=== PATIENT | male | born 1985 | race Caucasian/White ===

== ENCOUNTER 2020-02-25 15:25 | Emergency (ER) | payer OTHER, BC, SELFPAY ==
--- NOTE | ~2020-02-25 | XR_ITS ---
EXAMINATION: XR finger 4th RT min 2V EXAM DATE: 02/25/2020 15:49 INDICATION: Initial encounter following injury, with pain of the right fourth finger. TECHNIQUE: Right fourth finger frontal, lateral and oblique projections obtained and reviewed. The re is no prior study for comparison. FINDINGS: There are no acute right fourth finger fractures or dislocations identified. There is no s ubcutaneous gas. There is soft tissue swelling over the proximal phalanx. There are no radiopaque f oreign bodies. IMPRESSION: 1. Right fourth finger exam without acute osseous findings. 2. Soft tissue swelling. Reviewed, dictated and finalized at location A.
[2020-02-25 15:31] VITALS: BP 132/97; PULSE 98; RESP 20; TEMP 36.6; O2SAT 98
--- NOTE | 2020-02-25 16:10 | PC.NURSE ---
ice pack to rt hand/fingers. finger no longer appears angled/deformed
--- NOTE | 2020-02-25 16:20 | ED.UPPEXIN ---
HPI - Extremity Injury (Upper) General Chief Complaint: Extremity Injury, Upper <BILL Damian Last Filed: 02/25/20 16:27> Stated Complaint: right ring finger trauma <BILL Damian Last Filed: 02/25/20 16:27> Time Seen by Provider: 02/25/20 15:41 <BILL Damian Last Filed: 02/25/20 16:27> Source: patient <BILL Damian Last Filed: 02/25/20 16:27> Mode of arrival: ambulatory <BILL Damian Last Filed: 02/25/20 16:27> Limitations: no limitations <BILL Damian Last Filed: 02/25/20 16:27> History of Present Illness HPI narrative: This is a 34-year-old male that presents the emergency department for right fourth finger injury. Reports he was at work and tripped and fell and landed on his right hand. Reports an injury to the right 4th finger. Reports obvious deformity to the area. Reports while sitting in the room the finger reduced when he moved it. Denies numbness. <BILL Damian Last Filed: 02/25/20 16:27> Related Data Home Medications: Home Medications Medication Instructions Recorded Confirmed albuterol sulfate 1 inh INHALATION QID PRN 02/25/20 <BILL Damian Last Filed: 02/25/20 16:27> Allergies/Adverse Reactions: Allergies Allergy/AdvReac Type Severity Reaction Status Date / Time No Known Allergies Allergy Verified 02/25/20 15:37 <BILL Damian Last Filed: 02/25/20 16:27> Review of Systems Review of Systems: Narrative: CONSTITUTIONAL: Denies fever MUSCULOSKELETAL: Reports joint pain, and myalgia. NEUROLOGIC: Denies numbness <BILL Damian Last Filed: 02/25/20 16:27> All systems reviewed & are unremarkable except as noted in HPI and below <BILL Damian Last Filed: 05/12/20 16:27> PMFSH Past Medical History Medical History: Medical History (Updated 02/25/20 @ 16:27 by Michelle Walker PA-C) No active medical problems <Michelle Walker PA-C - Last Filed: 02/25/20 16:27> Family History Family History: Family History (Updated 05/13/16 @ 23:19 by DOCTOR UNKNOWN) Father Family history of diabetes mellitus in first degree relative <Michelle Walker PA-C - Last Filed: 02/25/20 16:27> Social History Social History: Social History Alcohol intake: current Gender identity (if verbalized by the patient): Male <Michelle Walker PA-C - Last Filed: 02/25/20 16:27> Exam Narrative: Exam Narrative: GENERAL: Well-appearing, well-nourished, and in no acute distress. HEAD: Normocephalic, atraumatic. EYES: EOMI. EXTREMITIES: Normal range of motion. No edema or obvious deformity. SKIN: Warm, dry, no rash. NEURO: No focal deficits. Alert and oriented x3. PSYCH: Normal mood and affect <Michelle Walker PA-C - Last Filed: 02/25/20 16:27> Course Vital Signs Vital signs: Vital Signs Temperature 97.8 F 02/25/20 15:31 Pulse Rate 98 02/25/20 15:31 Respiratory Rate 02/25/20 15:31 Blood Pressure 132/97 H 02/25/20 15:31 Pulse Oximetry 98 02/25/20 15:31 Temperature 97.8 F 02/25/20 15:31 Pulse Rate 98 02/25/20 15:31 Respiratory Rate 02/25/20 15:31 Blood Pressure 132/97 H 02/25/20 15:31 Pulse Oximetry 98 02/25/20 15:31 <Michelle Walker PA-C - Last Filed: 02/25/20 16:27> Vital Signs Temperature 97.8 F 02/25/20 15:31 Pulse Rate 98 02/25/20 15:31 Respiratory Rate 20 02/25/20 15:31 Blood Pressure 132/97 H 02/25/20 15:31 Pulse Oximetry 98 02/25/20 15:31 Temperature 97.8 F 02/25/20 15:31 Pulse Rate 98 02/25/20 15:31 Respiratory Rate 20 02/25/20 15:31 Blood Pressure 132/97 H 02/25/20 15:31 Pulse Oximetry 98 02/25/20 15:31 <Gaby Keyes MD - Last Filed: 02/25/20 20:00> MDM - Extremity Injury (Upper) MDM Narrative Medical decision making narrative: Patient presents to the emergency department for right fourth finger injur
[2020-02-25] MEDS: ACETAMINOPHEN 500 MG TABLET 1000 MG PO (16:31)
== END 2020-02-25 16:51 | disposition home or self-care (01) ==
PROVIDERS: Emergency Provider Emergency Medicine; PCP Family Medicine
DX: S63.284A Dislocation of proximal interphalangeal joint of right ring finger, initial encounter (principal); W01.0XXA Fall on same level from slipping, tripping and stumbling without subsequent striking against object, initial encounter
CPT/HCPCS: 29130; 73140; 99284; A9270

== ENCOUNTER 2020-10-15 19:38 | Emergency (ER) | payer OTHER, BC, SELFPAY ==
[2020-10-15 19:40] VITALS: BP 146/92; PULSE 92; RESP 16; TEMP 36.6; O2SAT 100
--- NOTE | 2020-10-15 20:14 | ED.DENTAL ---
HPI - Dental/Oral General Chief complaint: Dental/Oral Stated complaint: dental pain Time Seen by Provider: 10/15/20 19:44 Source: patient Mode of arrival: ambulatory Limitations: no limitations History of Present Illness HPI Narrative: Patient a 35-year-old male who presents with ulcers in the mouth that have been present since Monday has also had some intermittent fevers was seen and started on Augmentin for this patient denies any fever chills nausea vomiting today but notes that he has had intermittent fevers patient notes moderate aching pain involving the ulcers making it difficult to eat denies other URI symptoms. This week had a negative strep, Covid, and flu test. Related Data Allergies Allergy/AdvReac Type Severity Reaction Status Date / Time No Known Allergies Allergy Verified 10/14/20 12:33 Review of Systems Review of Systems: All systems reviewed & are unremarkable except as noted in HPI and below PMFSH Past Medical History Medical History Apnea BMI 31.0-31.9,adult BMI 32.0-32.9,adult Fatigue Fatigue No active medical problems Screening, lipid Family History Family History Father Family history of diabetes mellitus in first degree relative Acute myocardial infarction Diabetes mellitus Obesity Mother Emphysema of lung Social History Social History Smoking status: Never smoker Alcohol intake: current Gender identity (if verbalized by the patient): Male Exam Narrative: Exam Narrative: GENERAL: Well-appearing, well-nourished, and in no acute distress. HEAD: Normocephalic, atraumatic. EYES: PERRLA and EOMI. ENT: Nares clear, no rhinorrhea or epistaxis. Mucous membranes moist. Patient with aphthous ulcers in the oropharynx floor of the mouth is soft no space-occupying lesions noted uvula midline no trismus or drooling NECK: Supple. No adenopathy or masses. SKIN: Warm, dry, no rash. NEURO: No focal deficits. Alert and oriented x3. PSYCH: Normal mood and affect. Course Course Emergency Course: Patient in the room no distress will be referred to ENT for further evaluation of his mouth sores patient agreeing to this plan will be discharged at this time for outpatient follow-up Vital Signs Vital signs: Vital Signs Temperature 97.9 F 10/15/20 19:40 Pulse Rate 92 10/15/20 19:40 Respiratory Rate 16 10/15/20 19:40 Blood Pressure 146/92 H 10/15/20 19:40 Pulse Oximetry 100 10/15/20 19:40 Temperature 97.9 F 10/15/20 19:40 Pulse Rate 92 10/15/20 19:40 Respiratory Rate 16 10/15/20 19:40 Blood Pressure 146/92 H 10/15/20 19:40 Pulse Oximetry 100 10/15/20 19:40 MDM - Dental/Oral MDM Narrative Medical decision making narrative: Patient with likely viral syndrome will be referred to ENT for further evaluation. Patient afebrile nontoxic-appearing no distress felt appropriate for outpatient reevaluation. Differential Diagnosis Differential diagnosis: Likely gingival abscess, dental caries, toothache, dental abscess and aphthous ulcer Discharge Plan Discharge Clinical Impression: Aphthous ulcer of mouth Patient Disposition: Home, Self-Care Condition: Stable Instructions: Antibiotic Form, Canker Sores (ED) Additional Instructions: Follow-up with ENT and primary care in the next 3 to 5 days. Go to ER for shortness of breath, difficulty breathing, chest pain, fever/chills, weakness, nauseau/vomitting, etc. or any other concerns. Stay well-hydrated Take any prescribed medications as directed. Follow patient education sheets If you do not have a drug allergy to tylenol or motrin and can tolerate it then take tylenol or motrin as needed for discomfort/pain. Prescriptions: New Lidocaine Viscous 2 % solution 15 ml mucous membrane Q4-8H PRN (Reason: pain) Qty: 100 RF: 0 chlorhexidine
[2020-10-15] MEDS: DEXAMETHASONE SOD PHOS INJ 4 MG/ML VIAL 10 MG IM (20:16)
[2020-10-15 20:27] VITALS: BP 134/92; PULSE 82; RESP 16; TEMP 36.4; O2SAT 99
== END 2020-10-15 20:28 | disposition home or self-care (01) ==
PROVIDERS: Emergency Provider Emergency Medicine; PCP Family Medicine
DX: K12.0 Recurrent oral aphthae (principal); R06.81 Apnea, not elsewhere classified
CPT/HCPCS: 96372; 99283; J1100

== ENCOUNTER → 2020-10-30 15:45 | Outpatient (CLI) | payer OTHER, BC, SELFPAY ==
--- NOTE | ~2020-10-30 | XR_ITS ---
EXAMINATION: XR chest 2V DATE: 10/30/2020 16:02 INDICATION: Cough. TECHNIQUE: Frontal and lateral views of the chest were obtained. COMPARISON: Chest 2 views 11/04/2015 FINDINGS: The chest demonstrates clear lungs without pneumonia, pleural effusion, or pneumothorax. Th e heart size is normal. There is mild chronic anterior wedging of T12 vertebral body. IMPRESSION: 1. No acute cardiopulmonary disease. Reviewed, dictated and finalized at location A. CAL CLERICAL ASSISTANT
== END ==
PROVIDERS: PCP Family Medicine; Visit Provider Nurse Practitioner Family
DX: R05 Cough (principal)
CPT/HCPCS: 71046

== ENCOUNTER 2021-06-23 20:42 | Emergency (ER) | payer OTHER, SELFPAY ==
[2021-06-23 20:47] VITALS: BP 113/85; PULSE 100; RESP 18; TEMP 36.5; O2SAT 98
--- NOTE | 2021-06-23 21:56 | PC.NURSE ---
pt to intake desk and informed the nurse that he was going home and was going to take some benadryl . leadership intern verbalized that we are here 24/ if he would like to come back, and that we are very sorry for his wait.
== END 2021-06-23 22:11 | disposition left against medical advice (07) ==
LOC: ANHED 22:02
PROVIDERS: PCP Family Medicine
DX: T63.461A Toxic effect of venom of wasps, accidental (unintentional), initial encounter (principal)
CPT/HCPCS: 99199

== ENCOUNTER 2021-07-04 07:25 | Outpatient (CLI) | payer OTHER, BC, SELFPAY ==
--- NOTE | ~2021-07-04 | MR_ITS ---
EXAMINATION: MR brain/brain stem wo con DATE: 07/04/2021 08:15 INDICATION: Headache. TECHNIQUE: Magnetic resonance imaging (MRI) of the brain and brainstem was performed without intraven ous contrast. Sequences included sagittal and axial T1-weighted FSE, axial diffusion-weighted FS EPI, axial T2*-weighted GRE, axial T2-weighted FLAIR Propeller, and axial T2-weighted Propeller. Apparent diffusion coefficient (ADC) maps were created. COMPARISON: Head CT 11/04/2015 FINDINGS: There is no intracranial hemorrhage, acute infarction, or abnormal intracranial mass lesion . There is chronic encephalomalacia in lateral aspect of right temporal lobe. The ventricles are norm al in size. There is mucosal thickening in the sphenoid sinuses. The orbits are normal. There is a tr jackie left mastoid effusion. IMPRESSION: 1. Chronic encephalomalacia in lateral aspect of right temporal lobe, stable from 11/04/2015. Reviewed, dictated and finalized at location A. IMPRESSION: 1. Chronic encephalomalacia in lateral aspect of right temporal lobe, stable fr om 11/04/2015.
== END 2021-07-04 07:26 | disposition home or self-care (01) ==
PROVIDERS: PCP Family Medicine; Visit Provider Nurse Practitioner Family
DX: R51.9 Headache, unspecified (principal); Z87.81 Personal history of (healed) traumatic fracture; G93.89 Other specified disorders of brain
CPT/HCPCS: 70551

== ENCOUNTER 2021-07-10 15:06 | Emergency (ER) | payer OTHER, BC, SELFPAY ==
[2021-07-10 15:12] VITALS: BP 122/94; PULSE 92; RESP 16; TEMP 36.9; O2SAT 100
--- NOTE | 2021-07-10 15:12 | ED.URI ---
HPI - URI/Sore Throat General Chief Complaint: Upper Respiratory Infection Stated Complaint: cough/fever Time Seen by Provider: 07/10/21 15:21 Source: patient and RN notes reviewed Mode of arrival: ambulatory Limitations: no limitations History of Present Illness HPI Narrative: 36-year-old male presents with concern for cough, fever. He reports symptoms started Monday. He denies rhinorrhea, nasal congestion, sore throat, headache, vomiting, diarrhea. He denies body aches, chills, sweats. He reports he has been taking [id number] cold medicine with little relief. Reports he has not been vaccinated for Covid, does not have any known sick contacts, however reports there is been coworkers out of work due to illness. He denies shortness of breath. MD elicited complaint: cough Related Data Allergies Allergy/AdvReac Type Severity Reaction Status Date / Time No Known Allergies Allergy Verified 07/10/21 15:11 Review of Systems Review of Systems: CONSTITUTIONAL: Denies malaise, chills, sweats. Reports fever. EYES: Denies visual changes, redness, or discharge. ENT: Denies rhinorrhea, congestion, sinus pain, otalgia and sore throat. CARDIOVASCULAR: Denies chest pain, palpitations, or edema. RESPIRATORY: Reports cough. Denies dyspnea. GASTROINTESTINAL: Denies abdominal pain, nausea, vomiting, diarrhea SKIN: Denies rash or itching. MUSCULOSKELETAL: Denies myalgia. NEUROLOGIC: Denies headache. All systems reviewed & are unremarkable except as noted in HPI and below PMFSH Past Medical History Medical History Apnea BMI 31.0-31.9,adult BMI 32.0-32.9,adult BMI 33.0-33.9,adult Fatigue Fatigue No active medical problems Screening, lipid Family History Family History Father Family history of diabetes mellitus in first degree relative Acute myocardial infarction Diabetes mellitus Obesity Mother Emphysema of lung Sibling No problems noted. 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 There is no relevant family history pertinent to the presenting complaint Exam Narrative: GENERAL: Well-appearing, well-nourished, and in no acute distress. HEAD: Normocephalic EYES: PERRLA, conjunctivae clear ENT: Nares clear. Mucous membranes moist. TM pearly terry with sharp light reflex bilaterally; no tragal tenderness. Oropharynx not erythematous without lesions. Tonsils not enlarged and without exudate, no drooling, no hoarseness, no trismus, uvula midline. NECK: Supple. No lymphadenopathy CHEST: Clear to auscultation, breath sounds equal. No wheezing, rhonchi, rales, or stridor. No respiratory distress, speaks in full sentences. HEART: Regular rate and rhythm. No murmur heard. SKIN: Warm, dry, no rash. NEURO: Alert and oriented x3. PSYCH: Normal mood and affect Course Course Emergency Course: Patient is aware of diagnosis, understands and agrees to treatment plan. Anticipatory guidance given. Patient agrees to follow-up as directed and is aware of reasons to seek care at the emergency department. Portions of this record may have been created with voice recognition software Vital Signs Vital signs: Reviewed. MDM - URI/Sore Throat MDM Narrative Medical decision making narrative: Differential diagnosis considered: Valles virus, strep pharyngitis, allergic rhinitis, upper respiratory tract infection, sinusitis, rhinosinusitis, nasopharyngitis. viral pharyngitis, otitis media, otitis externa, pneumonia, bronch
== END 2021-07-10 15:35 | disposition home or self-care (01) ==
PROVIDERS: Emergency Provider Nurse Practitioner; PCP Family Medicine
DX: U07.1 COVID-19 (principal)
CPT/HCPCS: 87426; 99213; C9803; G0463

== ENCOUNTER 2021-11-12 15:49 | Emergency (ER) | payer OTHER, BC, SELFPAY ==
--- NOTE | ~2021-11-12 | XR_ITS ---
XR finger 4th LT min 2V DATE: 11/12/2021 16:29 INDICATION: Possible metallic foreign body TECHNIQUE: 3 views COMPARISON: None FINDINGS: There is a punctate radiopaque density overlying the superficial subcutaneous tissues anter ior to the distal interphalangeal joint. There is some radiopaque material beneath the distal aspect of the fourth digit fingernail. No fracture or dislocation, periosteal reaction or bone destruction. IMPRESSION: Pinpoint radiopaque foreign body overlying superficial anterior subcutaneous tissues at D IP joint level Reviewed, dictated and finalized at location A. ANNEALER IMPRESSION: Pinpoint radiopaque foreign body overlying superficial anterior sub cutaneous tissues at DIP joint level
[2021-11-12 15:58] VITALS: BP 144/78; PULSE 95; RESP 16; TEMP 36.9; O2SAT 99
--- NOTE | 2021-11-12 16:08 | ED.WOUNDLAC ---
HPI - Wound/Laceration General Chief Complaint: Wound/Laceration Stated Complaint: Infection in finger Time Seen by Provider: 11/12/21 16:09 Source: patient Mode of arrival: ambulatory Limitations: no limitations History of Present Illness HPI narrative: Karl Greenfield is a 36 yo male with a PMH of asthma, [facility] what appears to be an infection in his fourth left palmar side of his finger after getting a splinter on Monday with a red hot iron. pain with palpation on movement rated 9 for 10 Related Data Home Medications Medication Instructions Recorded Confirmed No Home Medications 11/12/21 11/12/21 Allergies Allergy/AdvReac Type Severity Reaction Status Date / Time No Known Allergies Allergy Verified 07/10/21 15:11 Review of Systems Review of Systems: CONSTITUTIONAL: Denies fever, chills, sweats. EYES: Denies visual changes, redness, discharge. ENT: Denies rhinorrhea, congestion, sore throat, otalgia. CARDIOVASCULAR: Denies chest pain, palpitations, edema. RESPIRATORY: Denies dyspnea, wheezing, cough GASTROINTESTINAL: Denies abdominal pain, nausea, vomiting, diarrhea. GENITOURINARY: Denies dysuria, hematuria, abnormal discharge SKIN: Denies rash or itching. NEUROLOGIC: Denies numbness, or focal weakness. PSYCHIATRIC: Denies anxiety or depression. Left fourth finger pain after metal splinter on Monday PMFSH Past Medical History Medical History Apnea Asthma BMI 31.0-31.9,adult BMI 32.0-32.9,adult BMI 33.0-33.9,adult Fatigue Fatigue No active medical problems Screening, lipid Family History Family History Father Family history of diabetes mellitus in first degree relative Acute myocardial infarction Diabetes mellitus Obesity Mother Emphysema of lung Sibling No problems noted. Social History Social History Smoking status: Never smoker Second hand tobacco smoke exposure: No Alcohol intake: current Substance use: never Substance use type: does not use Additional occupation/education comments: welder [employer] Gender identity (if verbalized by the patient): Male Comments At time of signature, I agree with nursing past medical, surgical, social and family history. There is no relevant family history pertinent to the presenting complaint. Patient's blood pressure elevated at this visit, follow-up with PCP Exam Narrative: GENERAL: This is a well-nourished, well-developed patient, in mild distress. HEAD: normocephalic, atraumatic. EYES: Sclera clear/white. Vision is grossly intact. EARS: External ears normal, . Hearing grossly intact. NOSE: External nose normal without nasal discharge, nares without redness, no rhinorrhea. THROAT: Mucous membranes moist, posterior pharynx NECK: Neck supple, CARDIOVASCULAR: Regular rate and rhythm without murmurs, gallops, or rubs. RESPIRATORY: Clear to auscultation. Breath sounds equal bilaterally. No wheezes, rales, or rhonchi. GASTROINTESTINAL: Abdomen soft, non-tender, SKIN: warm, intact with mild tenderness on the palmar side of the fourth distal digit of the finger, with some swelling, to move, no drainage. NEURO: awake, alert, and oriented to person, place and time. There were no obvious focal neurologic abnormalities. Steady gait EXTREMITIES: Normal range of motion. BACK: Nontender without deformity Course Course Emergency Course: Patient got metal splinter in finger on Monday and used a steak splinter out tool, since then finger has become more sore and swollen Xray of left hand-small cell sliver of metal in x-ray near distal joint patient to soak hand and started on antibiotic Start on Keflex-keep finger clean, cover while at work Level of Care: Express Care Visit Vital Signs Vital signs: Vital Signs Temperature 98.5 F 11/12/21 15:58 Pul
--- NOTE | 2021-11-12 16:47 | PC.NURSE ---
50/50 peroxide/ns soak in progress per geropsychologist order.
== END 2021-11-12 17:30 | disposition home or self-care (01) ==
PROVIDERS: Emergency Provider Nurse Practitioner; PCP Family Medicine
DX: S61.245A Puncture wound with foreign body of left ring finger without damage to nail, initial encounter (principal); W26.8XXA Contact with other sharp object(s), not elsewhere classified, initial encounter; J45.909 Unspecified asthma, uncomplicated
CPT/HCPCS: 73140; 99213; G0463

== ENCOUNTER 2022-02-24 11:33 | Outpatient (CLI) | payer OTHER, BC, SELFPAY ==
--- NOTE | ~2022-02-24 | US_ITS ---
EXAMINATION: US scrotum doppler DATE: 02/24/2022 12:16 INDICATION: Testicular pain TECHNIQUE: Testicular sonogram utilizing grayscale and Doppler COMPARISON: None. FINDINGS: The right testis measures 3.7 x 2.1 x 2.6 cm. The left testis measures 4.1 x 2.3 x 2.6 cm. There is normal vascular flow to both testes. The right epididymis is normal with normal vascular stephanie w. The left epididymis is normal with normal vascular flow. There is no varicocele or hydrocele. IMPRESSION: 1. No sonographic correlate for the patient's symptoms. Reviewed, dictated and finalized at location A.
== END 2022-02-24 11:34 | disposition home or self-care (01) ==
PROVIDERS: PCP Family Medicine; Visit Provider Nurse Practitioner Family
DX: N50.89 Other specified disorders of the male genital organs (principal)
CPT/HCPCS: 76870; 93976

== ENCOUNTER 2022-10-26 16:54 | Outpatient (CLI) | payer OTHER, BC, SELFPAY ==
--- NOTE | ~2022-10-26 | XR_ITS ---
EXAMINATION: XR_CERV2-3V_CR DATE: 10/26/2022 17:09 INDICATION: Neck pain. TECHNIQUE: 4 views of cervical spine including standing views were obtained. COMPARISON: Cervical spine radiographs 02/12/2018 FINDINGS: There is 10 degrees levoscoliosis of cervicothoracic spine. Vertebral body heights and inte rvertebral disc heights are normal. The facet joints are unremarkable. No central canal stenosis or p revertebral soft tissue swelling. IMPRESSION: 1. Cervicothoracic levoscoliosis. Reviewed, dictated and finalized at location A. INE HEEL SPRAYER
== END 2022-10-26 16:55 ==
LOC: MICIMG 16:56
PROVIDERS: PCP Family Medicine; Visit Provider Nurse Practitioner Family
DX: M54.2 Cervicalgia (principal)
CPT/HCPCS: 72040

== ENCOUNTER 2023-01-29 17:36 | Emergency (ER) | payer OTHER, BC, SELFPAY ==
--- NOTE | 2023-01-29 17:44 | ED.URI ---
HPI - URI/Sore Throat General Chief Complaint: Upper Respiratory Infection Stated Complaint: cough,lt ear clogged,congestion Time Seen by Provider: 01/29/23 17:44 Source: patient Mode of arrival: ambulatory Limitations: no limitations History of Present Illness HPI Narrative: 37-year-old male presents with complaint of cough, nasal congestion, sinus pressure off and on for the last 2 months. States he has tried multiple [id number] medications from his medicine cabinet and not helping. Mentioned a few such as Coricidin, Mucinex, ?cannot remember the other ones ?. Denies chest pain and shortness of breath. Does report a history of asthma. Patient works outside. Symptoms getting progressively worse. Reports blowing green drainage from his nose. Afebrile. All systems reviewed and negative except as noted above. Related Data Allergies Allergy/AdvReac Type Severity Reaction Status Date / Time No Known Allergies Allergy Verified 01/29/23 17:43 Review of Systems Review of Systems: CONSTITUTIONAL: Denies fever, chills, or sweats. EYES: Denies visual changes, redness, or discharge. ENT: Reports rhinorrhea, congestion, sinus pressure, postnasal drainage, left ear pain.. Denies sore throat CARDIOVASCULAR: Denies chest pain, palpitations, or edema. RESPIRATORY: Reports cough. Denies dyspnea. GASTROINTESTINAL: Denies abdominal pain, nausea, vomiting, or diarrhea. GENITOURINARY: Denies dysuria or hematuria. SKIN: Denies rash or itching. MUSCULOSKELETAL: Denies back pain, joint pain, or myalgia. NEUROLOGIC: Denies headache, numbness, or weakness. PSYCHIATRIC: Denies anxiety or depression. All other systems reviewed are negative, except as documented in HPI. [facility] Past Medical History Medical History Apnea Asthma BMI 31.0-31.9,adult BMI 32.0-32.9,adult BMI 33.0-33.9,adult Fatigue Fatigue No active medical problems Screening, lipid Family History Family History Father Family history of diabetes mellitus in first degree relative Acute myocardial infarction Diabetes mellitus Obesity Mother Emphysema of lung Sibling No problems noted. Social History Social History Smoking status: Never smoker Second hand tobacco smoke exposure: No Alcohol intake: current Substance use: never Substance use type: does not use Living arrangements: with family Occupation/Education: occupation Additional occupation/education comments: welder fitter gas Gender identity (if verbalized by the patient): Male Comments At time of signature, agree with nursing past medical, surgical, social and family history. There is no relevant family history pertinent to the presenting complaint. Exam Narrative: GENERAL: This is a well-nourished, well-developed patient, in no apparent distress. HEAD: normocephalic, atraumatic. EYES: PERRL. Sclera clear/white. Vision is grossly intact. EARS: External ears normal, auditory canals clear and without drainage, purulent fluid to L ear without erythema. R TM clear fluid. no perforation bilaterally. NOSE: External nose normal with purulent nasal drainage, erythema and swelling to bilateral nares. bilatearl maxillary sinus tenderness. THROAT: Mucous membranes moist, erythema with post nasal drainage. NECK: Neck supple, non-tender without lymphadenopathy, masses or thyromegaly. CARDIOVASCULAR: Regular rate and rhythm without murmurs, gallops, or rubs. RESPIRATORY: Clear to auscultation. Breath sounds equal bilaterally. No wheezes, rales, or rhonchi. SKIN: warm, Dry, intact with no suspicious lesions or rash, good texture and turgor. NEURO: awake, alert, and oriented to person, place and time. Course Course Level of Care: Express Care Visit Vital Signs Vital signs: Vital Signs Temperature 36.6 C 01/29/23 17:46
[2023-01-29 17:46] VITALS: BP 127/82; PULSE 103; RESP 16; TEMP 36.6; O2SAT 100
== END 2023-01-29 18:00 | disposition home or self-care (01) ==
PROVIDERS: Emergency Provider Nurse Practitioner Family; PCP Family Medicine
DX: J01.90 Acute sinusitis, unspecified (principal); H65.02 Acute serous otitis media, left ear; J45.909 Unspecified asthma, uncomplicated
CPT/HCPCS: 99213; G0463

== ENCOUNTER 2023-05-12 09:11 | Outpatient (CLI) | payer OTHER, BC, SELFPAY ==
--- NOTE | ~2023-05-12 | XR_ITS ---
AP and lateral views of the sacrum/coccyx CLINICAL HISTORY: Pain FINDINGS: No fracture or dislocation seen. Osseous alignment is anatomic. Visualized joint spaces are intact. Soft tissues are unremarkable. IMPRESSION: Unremarkable exam. Reviewed, dictated and finalized at location . IMPRESSION: Unremarkable exam.
== END 2023-05-12 09:12 ==
LOC: MICIMG 09:14
PROVIDERS: PCP Family Medicine; Visit Provider Family Medicine
DX: M53.3 Sacrococcygeal disorders, not elsewhere classified (principal)
CPT/HCPCS: 72220

== ENCOUNTER 2023-06-10 08:11 | Outpatient (CLI) | payer OTHER, BC, SELFPAY ==
[2023-06-10 08:49] LABS: Basophils Percent Auto 0.5 % (0.2-1.2); Eosinophils Absolute Auto 0.2 K/mm3 (0-0.3); Eosinophils Percent Auto 2.5 % (0-4.4); Hematocrit 44.2 % (42.0-52.0); Hemoglobin 14.8 g/dL (14.0-18.0); Immature Granulocyte Absolute 0.02 K/mm3 (0.00-0.031); Immature Granulocyte Percent A 0.3 % (0-0.5); Lymphocytes Absolute Auto 2.13 K/mm3 (0.9-3.2); Mean Corpuscular HGB Conc 33.5 g/dl (32-36); Mean Corpuscular Hemoglobin 30.8 pg (26-34); Mean Corpuscular Volume 92.1 fl (80-100); Mean Platelet Volume 10.5 fl (7.4-10.4); Monocytes Absolute Auto 0.8 K/mm3 (0.1-0.6); Monocytes Percent Auto 10.8 % (2.6-8.5); Neutrophils Absolute Auto 4.4 K/mm3 (1.3-6.7); Neutrophils Percent Auto 57.9 % (45.5-73.1); Platelet Count Result 173 k/mm3 (150-375); Red Cell Distribution Width 11.8 % (11.5-14.5); White Blood Count 7.6 K/mm3 (4.5-10.0)
[2023-06-10 08:58] LABS: Alanine Aminotransferase 30 U/L (6-50); Alkaline Phosphatase 54 U/L (38-126); Anion Gap 4 mmol/L (8-16); Aspartate Amino Transferase 25 U/L (17-59); Bilirubin,Total 1.2 mg/dL (0.2-1.3); Blood Urea Nitrogen 11 mg/dL (9-20); Calcium 8.7 mg/dL (8.4-10.2); Carbon Dioxide 25 mmol/L (22-30); Chloride 104 mmol/L (98-107); Cholesterol 177 mg/dL (0-200); Estimated Glomerular Filt Rate > 60; Glucose 101 mg/dL (65-110); HDL Direct 53 mg/dL; Potassium 4.4 mmol/L (3.4-5.0); Sodium 133 mmol/L (137-145); Triglycerides 40 mg/dL (<150)
[2023-06-10 09:09] LABS: LDL Cholesterol Direct 99 mg/dL
[2023-06-10 09:26] LABS: Thyroid Stimulating Hormone 0.715 uIU/mL (0.465-4.680)
== END 2023-06-10 08:12 | disposition home or self-care (01) ==
LOC: ANHLAB 08:12
PROVIDERS: PCP Family Medicine; Visit Provider Physician Assistant Medical
DX: E78.5 Hyperlipidemia, unspecified (principal); R03.0 Elevated blood-pressure reading, without diagnosis of hypertension; R73.01 Impaired fasting glucose; R74.8 Abnormal levels of other serum enzymes; Z13.220 Encounter for screening for lipoid disorders; Z13.29 Encounter for screening for other suspected endocrine disorder
CPT/HCPCS: 36415; 80053; 80061; 84443; 85025

== ENCOUNTER 2023-06-13 14:33 | Emergency (ER) | payer OTHER, BC, SELFPAY ==
--- NOTE | ~2023-06-13 | CT_ITS ---
EXAMINATION: CT brain wo con DATE: 06/13/2023 17:07 INDICATION: electrical injury . TECHNIQUE: Computed tomography (CT) of the head was performed without intravenous contrast. The mA wa s adjusted according to patient size. Iterative reconstruction technique was employed. The dose-lengt h product was 605.33 mGy-cm. COMPARISON: 11/04/2015; MRI brain 07/04/2021. FINDINGS: No acute intracranial hemorrhage or extra-axial fluid collection. No hydrocephalus, mass, or herniation. No acute ischemic infarct. Unremarkable dural venous sinus attenuation. No acute osseous abnormality. The aerated spaces are clear. Chronic, stable small focus of encephalomalacia in the lateral aspect of the right temporal lobe. IMPRESSION: No acute intracranial process. Reviewed, dictated and finalized at location K.
--- NOTE | 2023-06-13 14:54 | ECG_ITS ---
Measurements Intervals [place] Rate: 67 P: 32 MO: 159 QRS: 22 QRSD: 94 T: 24 QT: 354 QTc: 374 Interpretive Statements SINUS RHYTHM WITH SINUS ARRHYTHMIA NORMAL ECG NO PREVIOUS ECG AVAILABLE FOR COMPARISON Electronically Signed On 06-13-2023 15:21:18 CDT by Luis Eduardo Bennett M.D.
[2023-06-13 14:57] VITALS: BP 148/90; PULSE 77; RESP 16; TEMP 36.8; O2SAT 100
--- NOTE | 2023-06-13 16:54 | ED.GENADULT ---
HPI - General Adult General Chief complaint: Unspecified <BILL Damian Last Filed: 06/13/23 18:55> Stated complaint: electrocuted by 480 . patient denies symptoms <BILL Damian Last Filed: 06/13/23 18:55> Time Seen by Provider: 06/13/23 15:23 <BILL Damian Last Filed: 06/13/23 18:55> Source: patient <BILL Damian Last Filed: 06/13/23 18:55> Mode of arrival: ambulatory <BILL Damian Last Filed: 06/13/23 18:55> Limitations: no limitations <BILL Damian Last Filed: 06/13/23 18:55> History of Present Illness HPI narrative: This is a 38 year old male that presents to the ER after an electrical injury. 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 He grabbed the ladder and was electrocuted. Reports seeing some wires hanging down. Reports he was able to get his hand off of the ladder. Reports his vision was blurry initially. He also felt out of it. Reports feeling fine now. Reports a possible small area of burn to the right forearm. Denies chest pain, shortness of breath, vomiting or focal numbness or weakness. <Michelle Walker PA-C - Last Filed: 06/13/23 18:55> Related Data Allergies/adverse reactions: Allergies Allergy/AdvReac Type Severity Reaction Status Date / Time No Known Allergies Allergy Verified 06/13/23 14:34 <BILL Damian Last Filed: 06/13/23 18:55> Review of Systems Review of Systems: CONSTITUTIONAL: Denies fever CARDIOVASCULAR: Denies chest pain RESPIRATORY: Denies dyspnea. GASTROINTESTINAL: Denies vomiting SKIN: Reports superficial burn NEUROLOGIC: Denies headache, numbness, or weakness. <BILL Damian Last Filed: 06/13/23 18:55> All systems reviewed & are unremarkable except as noted in HPI and below <BILL Damian Last Filed: 06/13/23 18:55> [facility] Past Medical History Medical History: Medical History Apnea Asthma BMI 31.0-31.9,adult BMI 32.0-32.9,adult BMI 33.0-33.9,adult Fatigue Fatigue No active medical problems Screening, lipid Wart of hand <Michelle Walker PA-C - Last Filed: 06/13/23 18:55> Family History Family History: Family History Father Family history of diabetes mellitus in first degree relative Acute myocardial infarction Diabetes mellitus Obesity Mother Emphysema of lung COPD (chronic obstructive pulmonary disease) Sibling No problems noted. <Michelle Walker PA-C - Last Filed: 06/13/23 18:55> Social History Social History: Social History Smoking status: Never smoker Smokeless tobacco user: chewing tobacco Second hand tobacco smoke exposure: No Alcohol intake: current Substance use: never Substance use type: does not use Lack of Transportation: No Lack of Food: Never True Current Housing: I Have Housing Concerned About Future Housing: No Difficulty Paying Gas/Electric Bills: No Difficulty Paying for Meds: No Currently Unemployed: No Education: Trade/Vocational Certificate Difficulty w/ Childcare or Family Care: No Living arrangements: with family Occupation/Education: occupation Additional occupation/education comments: heliarc welder Gender identity (if verbalized by the patient): Male <Michelle Walker PA-C - Last Filed: 06/13/23 18:55> Exam Narrative: GENERAL: Well-appearing, well-nourished, and in no acute distress. HEAD: Normocephalic, atraumatic. EYES: PERRLA and EOMI. ENT: Nares clear, no rhinorrhea or epistaxis. Mucous membranes moist. Oropharynx without tonsillar hypertrophy exudate or other lesions. Bilateral TMs pearly terry non-bulging NECK: Supple. No adenopathy or masses. CHEST: Clear to auscultation. No respiratory distress. No wheezes rales or rhonch
[2023-06-13 17:08] LABS: Basophils Absolute Auto 0.1 K/mm3 (0.0-0.1); Basophils Percent Auto 0.5 % (0.2-1.2); Eosinophils Absolute Auto 0.2 K/mm3 (0-0.3); Eosinophils Percent Auto 2.2 % (0-4.4); Hematocrit 44.2 % (42.0-52.0); Immature Granulocyte Absolute 0.03 K/mm3 (0.00-0.031); Immature Granulocyte Percent A 0.3 % (0-0.5); Lymphocytes Absolute Auto 2.35 K/mm3 (0.9-3.2); Lymphocytes Percent Auto 24.4 % (18.3-44.2); Mean Corpuscular HGB Conc 33.9 g/dl (32-36); Mean Corpuscular Hemoglobin 31.3 pg (26-34); Mean Corpuscular Volume 92.1 fl (80-100); Mean Platelet Volume 10.1 fl (7.4-10.4); Monocytes Absolute Auto 0.8 K/mm3 (0.1-0.6); Monocytes Percent Auto 8.4 % (2.6-8.5); Neutrophils Absolute Auto 6.2 K/mm3 (1.3-6.7); Neutrophils Percent Auto 64.2 % (45.5-73.1); Platelet Count Result 188 k/mm3 (150-375); Red Cell Distribution Width 11.8 % (11.5-14.5); White Blood Count 9.6 K/mm3 (4.5-10.0)
[2023-06-13 17:09] LABS: Appearance Urine Clear (Clear); Bilirubin Urine Negative (Negative); Blood Urine Negative (Negative); Color Urine Yellow (Yellow); Glucose Urine UA Negative (Negative); Ketones Urine Negative (Negative); Leukocyte Esterase Ur Negative LEU/UL (Negative); Nitrate Urine Negative (Negative); Protein Urine Negative (Negative); Specific Grav Ur 1.008 (1.001-1.035); Urobilinogen Urine 0.2 mg/dL (<2.0)
[2023-06-13] MEDS: SODIUM CHLORIDE 0.9% IV 1,000 ML 999 ML IV CONT (17:15)
[2023-06-13 17:21] LABS: Add Urine Microscopic? NO; Alanine Aminotransferase 29 U/L (6-50); Albumin Level 4.5 g/dL (3.5-5.1); Alkaline Phosphatase 52 U/L (38-126); Anion Gap 8 mmol/L (8-16); Aspartate Amino Transferase 27 U/L (17-59); Bilirubin,Total 0.9 mg/dL (0.2-1.3); Blood Urea Nitrogen 12 mg/dL (9-20); Calcium 9.3 mg/dL (8.4-10.2); Carbon Dioxide 26 mmol/L (22-30); Chloride 103 mmol/L (98-107); Creatine Kinase 67 U/L (55-170); Estimated CRCL calculation 121 ml/min; Estimated Glomerular Filt Rate > 60; Glucose 94 mg/dL (65-110); Potassium 3.9 mmol/L (3.4-5.0); Sodium 137 mmol/L (137-145)
[2023-06-13 17:55] LABS: Troponin I < 0.012 ng/mL (0.000-0.034)
[2023-06-13 20:42] VITALS: BP 125/94; PULSE 82; RESP 16; O2SAT 98
== END 2023-06-13 20:48 | disposition home or self-care (01) ==
PROVIDERS: Emergency Provider Physician Assistant; PCP Family Medicine
DX: T75.4XXA Electrocution, initial encounter (principal); J45.909 Unspecified asthma, uncomplicated; F17.220 Nicotine dependence, chewing tobacco, uncomplicated; W86.1XXA Exposure to industrial wiring, appliances and electrical machinery, initial encounter
CPT/HCPCS: 36415; 70450; 80053; 81003; 82550; 84484; 85025; 93005; 96360; 99284; J7030

== ENCOUNTER 2023-10-14 09:28 | Outpatient (CLI) | payer OTHER, BC, SELFPAY ==
[2023-10-14 09:47] LABS: Basophils Percent Auto 0.5 % (0.2-1.2); Eosinophils Absolute Auto 0.2 K/mm3 (0-0.3); Eosinophils Percent Auto 3.5 % (0-4.4); Immature Granulocyte Absolute 0.02 K/mm3 (0.00-0.031); Immature Granulocyte Percent A 0.3 % (0-0.5); Lymphocytes Absolute Auto 1.83 K/mm3 (0.9-3.2); Lymphocytes Percent Auto 29.4 % (18.3-44.2); Mean Corpuscular HGB Conc 34.1 g/dl (32-36); Mean Corpuscular Hemoglobin 31.2 pg (26-34); Mean Corpuscular Volume 91.5 fl (80-100); Mean Platelet Volume 9.7 fl (7.4-10.4); Monocytes Absolute Auto 0.6 K/mm3 (0.1-0.6); Monocytes Percent Auto 9.6 % (2.6-8.5); Neutrophils Absolute Auto 3.5 K/mm3 (1.3-6.7); Neutrophils Percent Auto 56.7 % (45.5-73.1); Platelet Count Result 216 k/mm3 (150-375); Red Blood Count 4.81 M/mm3 (4.6-6.20); Red Cell Distribution Width 11.8 % (11.5-14.5); White Blood Count 6.2 K/mm3 (4.5-10.0)
[2023-10-14 10:00] LABS: Alanine Aminotransferase 25 U/L (6-50); Albumin Level 4.1 g/dL (3.5-5.1); Alkaline Phosphatase 67 U/L (38-126); Anion Gap 6 mmol/L (8-16); Aspartate Amino Transferase 24 U/L (17-59); Bilirubin,Total 1.5 mg/dL (0.2-1.3); Blood Urea Nitrogen 9 mg/dL (9-20); Carbon Dioxide 27 mmol/L (22-30); Chloride 105 mmol/L (98-107); Estimated Glomerular Filt Rate > 60; Glucose 123 mg/dL (65-110); Potassium 4.3 mmol/L (3.4-5.0); Sodium 138 mmol/L (137-145)
[2023-10-14 10:55] LABS: Thyroid Stimulating Hormone Reflex 0.662 uIU/mL (0.465-4.68)
[2023-10-20 14:21] LABS: Testosterone Total 617 ng/dL (250-1100)
== END 2023-10-14 09:29 | disposition home or self-care (01) ==
LOC: ANHLAB 09:30
PROVIDERS: PCP Family Medicine; Visit Provider Physician Assistant
DX: R11.10 Vomiting, unspecified (principal); R53.83 Other fatigue
CPT/HCPCS: 36415; 80053; 84403; 84443; 85025

== ENCOUNTER 2024-02-22 10:40 | Emergency (ER) | payer OTHER, BC, SELFPAY ==
--- NOTE | ~2024-02-22 | CT_ITS ---
EXAMINATION: CT brain wo con DATE: 02/22/2024 12:59 INDICATION: Left face laceration. TECHNIQUE: Computed tomography (CT) of the head was performed without intravenous contrast. The mA wa s adjusted according to patient size. Iterative reconstruction technique was employed. The dose-lengt h product was 605.33 mGy-cm. COMPARISON: Head CT 06/13/2023, brain MRI 07/04/2021 FINDINGS: There is chronic encephalomalacia in lateral right temporal lobe. There is no intracranial hemorrhage, acute infarction, or abnormal intracranial mass lesion. The ventricles are normal in size . There is mild mucosal thickening in the paranasal sinuses. There is a trace left mastoid effusion. There is a left supraorbital laceration. IMPRESSION: 1. Chronic encephalomalacia in lateral right temporal lobe. Reviewed, dictated and finalized at location A.
--- NOTE | ~2024-02-22 | CT_ITS ---
EXAMINATION: CT facial bones wo con DATE: 02/22/2024 13:00 INDICATION: Left face laceration. TECHNIQUE: Computed tomography (CT) of the facial bones and maxillofacial region was performed withou t intravenous contrast. Automated exposure control and iterative reconstruction technique were employ ed. The dose-length product was 573.90 mGy-cm. COMPARISON: None. FINDINGS: There is a left supraorbital laceration. The orbits are normal. There is mild mucosal thick ening in the paranasal sinuses. There is material in the mouth on the left. IMPRESSION: 1. No fracture. Reviewed, dictated and finalized at location A. IMPRESSION: 1. No fracture.
[2024-02-22 10:57] VITALS: BP 136/91; PULSE 75; RESP 16; TEMP 36.6; O2SAT 100
--- NOTE | 2024-02-22 12:06 | PC.NURSE ---
Pt reports having recent tdap within the last year.
--- NOTE | 2024-02-22 12:47 | ED.GENADULT ---
HPI - General Adult General Chief complaint: Head Injury Stated complaint: head injury Time Seen by Provider: 02/22/24 11:53 History of Present Illness HPI narrative: Hollis Greenfield is a 38 y/o male who presents today after being hit in the head with a metal clamp. 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 laceration the edge of his right eyebrow Related Data Home Medications Medication Instructions Recorded Confirmed albuterol (refill) 90 mcg inhalation 06/15/23 10/11/23 mcg/actuation aerosol inhaler Allergies Allergy/AdvReac Type Severity Reaction Status Date / Time No Known Allergies Allergy Verified 10/11/23 15:05 Review of Systems Review of Systems: All systems reviewed & are unremarkable except as noted in HPI and below PMFSH Past Medical History Medical History Apnea Asthma BMI 31.0-31.9,adult BMI 32.0-32.9,adult BMI 33.0-33.9,adult Fatigue Fatigue No active medical problems Screening, lipid Wart of hand Family History Family History Father Family history of diabetes mellitus in first degree relative Acute myocardial infarction Diabetes mellitus Obesity Mother Emphysema of lung COPD (chronic obstructive pulmonary disease) Sibling No problems noted. Social History Social History Smoking status: Never smoker Smokeless tobacco user: chewing tobacco Second hand tobacco smoke exposure: No Alcohol intake: current Substance use: never Substance use type: does not use Lack of Transportation: No Lack of Food: Never True Current Housing: I Have Housing Concerned About Future Housing: No Difficulty Paying Gas/Electric Bills: No Difficulty Paying for Meds: No Currently Unemployed: No Education: Trade/Vocational Certificate Difficulty w/ Childcare or Family Care: No Living arrangements: with family Occupation/Education: occupation Additional occupation/education comments: maintenance welder Gender identity (if verbalized by the patient): Male Exam Const: General: healthy appearing Nutritional Appearance: well nourished Orientation/consciousness: patient oriented x3 Limitations: no limitations HENMT: Head: laceration (2cm laceration vertical along the inner left eyebrow ) Ears: external ears normal Face/Nose/Sinus: Normal external nose present Face and sinus: normal facial exam Mouth: Yes Normal oral and palatal mucosa present Eyes: Conjunctivae: conjunctivae normal Pupils: Equal, round and reactive pupils present EOM: EOMs intact bilaterally Neck: Neck: normal visual inspection Resp: Effort & Inspection: normal respiratory effort Auscultation: clear to auscultation bilaterally Cardio: Rate: regular rate Rhythm: regular rhythm Skin: General skin exam: normal color Rashes: no rashes Neuro: General: patient oriented x3 Cranial nerves: Yes Nystagmus not present Speech: normal speech Gait exam (Neuro): Normal gait present Extrem: General: normal to inspection Psych: Mental Status: mental status grossly normal Affect: normal affect Attitude: cooperative Course Vital Signs Vital signs: Vital Signs Temperature 36.6 C 02/22/24 10:57 Pulse Rate 75 02/22/24 10:57 Respiratory Rate 16 02/22/24 10:57 Blood Pressure 136/91 H 02/22/24 10:57 Pulse Oximetry 100 02/22/24 10:57 Oxygen Delivery Room Air 02/22/24 10:57 Temperature 36.6 C 02/22/24 10:57 Pulse Rate 64 02/22/24 13:44 Respiratory Rate 20 02/22/24 13:44 Blood Pressure 131/91 H 02/22/24 13:44 Pulse Oximetry 100 02/22/24 13:44 Oxygen Delivery Room Air 02/22/24 10:57 Procedures Laceration Laceration 1: Date: 02/22/24 Time: 12:45 Site: face Si
[2024-02-22] MEDS: LIDO 2%/EPINEPHRINE 1:100,000 20 ML VIAL 10 ML INFILTRATE (13:04)
[2024-02-22 13:44] VITALS: BP 131/91; PULSE 64; RESP 20; O2SAT 100
== END 2024-02-22 13:59 | disposition home or self-care (01) ==
PROVIDERS: Emergency Provider Nurse Practitioner Family; PCP Family Medicine
DX: S01.112A Laceration without foreign body of left eyelid and periocular area, initial encounter (principal); J45.909 Unspecified asthma, uncomplicated; F17.220 Nicotine dependence, chewing tobacco, uncomplicated; G93.89 Other specified disorders of brain; W20.8XXA Other cause of strike by thrown, projected or falling object, initial encounter
CPT/HCPCS: 12011; 70450; 70486; 99284

== ENCOUNTER 2024-04-01 13:54 | Emergency (ER) | payer OTHER, BC, SELFPAY ==
--- NOTE | 2024-04-01 13:56 | ED.URI ---
HPI - URI/Sore Throat General Chief Complaint: Upper Respiratory Infection Stated Complaint: Cold symptoms Time Seen by Provider: 04/01/24 13:56 Source: patient Mode of arrival: ambulatory Limitations: no limitations History of Present Illness HPI Narrative: Patient is a 39-year-old male who presents with 4 days fatigue and body aches. Patient states he was of town working on a project outside in the it was just dehydration. Patient returned home yesterday. Patient has not had a fever the last 2 days. Also reports chest congestion. Related Data Home Medications Medication Instructions Recorded Confirmed albuterol (refill) 90 mcg inhalation 06/15/23 03/04/24 mcg/actuation aerosol inhaler Allergies Allergy/AdvReac Type Severity Reaction Status Date / Time No Known Allergies Allergy Verified 04/01/24 14:28 Review of Systems Review of Systems: All systems reviewed & are unremarkable except as noted in HPI and below Constitutional: Constitutional: Reports body ache(s), Denies chills, Reports fatigue, Denies fever(s), Denies headache(s), Denies malaise and Denies weakness Eyes: Eyes: Denies blurry vision, Denies itchy eyes and Denies loss of vision ENT: Denies otalgia, Denies headache(s), Denies nasal congestion, Denies sinus pain and Denies sore throat Cardiovascular: Cardiovascular: Denies chest pain, Denies irregular heart rhythm and Denies dyspnea Respiratory: Respiratory: Reports chest congestion, Denies cough and Denies dyspnea Gastrointestinal: Gastrointestinal: Denies abdominal pain, Denies diarrhea, Denies nausea and Denies vomiting Musculoskeletal: Musculoskeletal: Denies back pain, Denies myalgias and Denies arthralgias Integumentary/Breasts: Skin/Breast: Denies pruritus and Denies rash Neurologic: Denies headache(s), Denies loss of vision and Denies weakness Psychiatric: Psychiatric: Reports no additional psychiatric complaints Endocrine: Endocrine: Denies fatigue Allergic/Immunologic: Allergic/Immunologic: Denies itchy eyes PMFSH Past Medical History Medical History Apnea Asthma BMI 31.0-31.9,adult Fatigue Fatigue Hx of migraines No active medical problems Screening, lipid Wart of hand Family History Family History Father Family history of diabetes mellitus in first degree relative Acute myocardial infarction Diabetes mellitus Obesity Mother Emphysema of lung COPD (chronic obstructive pulmonary disease) Sibling No problems noted. Social History Social History Smoking status: Never smoker Smokeless tobacco user: chewing tobacco Second hand tobacco smoke exposure: No Alcohol intake: current Substance use: never Substance use type: does not use Lack of Transportation: No Lack of Food: Never True Current Housing: I Have Housing Concerned About Future Housing: No Difficulty Paying Gas/Electric Bills: No Difficulty Paying for Meds: No Currently Unemployed: No Education: Trade/Vocational Certificate Difficulty w/ Childcare or Family Care: No Living arrangements: with family Occupation/Education: occupation Additional occupation/education comments: shop welder Gender identity (if verbalized by the patient): Male Comments At time of signature, agree with nursing past medical, surgical, social and family history. There is no relevant family history pertinent to the presenting complaint. Exam Const: General: cooperative, healthy appearing, comfortable, no acute distress and well nourished Nutritional Appearance: well nourished Orientation/consciousness: patient oriented x3 Limitations: no limitations HENMT: Head: normal to inspection, normocephalic and atraumatic Ears: hearing grossly normal bilaterally, external ears normal, TM's normal bilaterally, EAC's normal and n
[2024-04-01 14:00] VITALS: BP 127/90; PULSE 99; RESP 16; TEMP 36.7; O2SAT 99
== END 2024-04-01 14:49 | disposition home or self-care (01) ==
PROVIDERS: Emergency Provider Nurse Practitioner Family; PCP Family Medicine
DX: U07.1 COVID-19 (principal); J45.909 Unspecified asthma, uncomplicated
CPT/HCPCS: 87426; 87804; 99213; G0463

== ENCOUNTER 2024-10-26 09:33 | Emergency (ER) | payer OTHER, BC, SELFPAY ==
[2024-10-26] VITALS (13 sets, daily range): BP systolic 120–143; BP diastolic 77–97; PULSE 69–86; RESP 16–24; TEMP 36.4–36.8; O2SAT 95–100
--- NOTE | ~2024-10-26 | CT_ITS ---
EXAMINATION: CT brain wo con DATE: 10/26/2024 13:33 INDICATION: Vertigo TECHNIQUE: Computed tomography (CT) of the head was performed without intravenous contrast. The mA wa s adjusted according to patient size. Iterative reconstruction technique was employed. Exam dose: 60 5.33 mGy-cm total exam DLP. COMPARISON: 02/22/2024 CT brain / MR brain/brainstem FINDINGS: Stable chronic small area of diminished attenuation at the lateral aspect of the right temp oral lobe, unchanged since 02/22/2024 07/04/2021. No intracranial mass lesion or hemorrhage or cerebrovascular accident. No midline shift or mass effec t. Normal ventricular size. Normal terry-white matter differentiation. No subdural or epidural hematoma. The paranasal sinuses and mastoid air cells are normally developed and aerated. No fracture or bone destruction of the cranial IMPRESSION: No acute intracranial abnormality or significant change since 02/18/2024 Reviewed, dictated and finalized at [facility]. Reviewed, dictated and finalized at location [facility]. HALMIC SURGEON IMPRESSION: No acute intracranial abnormality or significant change since 2023
--- NOTE | ~2024-10-26 | CT_ITS ---
CTA brain carotid Ordering provider: Franky Russell MD History: . persistent vertigo . Comparison: None. Technique: CT angiogram head and neck was performed following timed intravenous injection of contrast . Thin slice axial images and reformatted coronal images were obtained. Three dimensional reformatted images of the brain were also obtained using a [employer] workstation. Radiation reduction technique ut ilized. The dose-length product was 1070.13 mGy-cm. 100 mL Omnipaque 350 was given IV. FINDINGS: HEAD: --ANTERIOR AND MIDDLE CEREBRAL ARTERIES AND BRANCHES: Normal caliber and contour. --INTERNAL CAROTID ARTERIES: Normal caliber and contour. --BASILAR ARTERY AND BRANCHES: Normal caliber and contour. No atheromatous disease. --POSTERIOR CEREBRAL ARTERIES: Normal caliber and contour --POSTERIOR COMMUNICATING ARTERIES: The left is demonstrated. The right is not visualized which is pr obably related to congenital absence or small size. --ANEURYSM: None visualized. --BRAIN: Please refer to report of CT head performed the same day. --BONES AND SUPERFICIAL SOFT TISSUES: Please refer to report of CT head performed the same day. --PARANASAL SINUSES AND MASTOIDS: Please refer to report of CT head done the same day. NECK: --RIGHT CERVICAL CAROTID SYSTEM: Normal caliber and contour. Percent stenosis per NASCET criteria is 0%. No carotid dissection. Otherwise, no significant atheromatous disease or stenosis of the cervica l carotid system. --LEFT CERVICAL CAROTID SYSTEM: Normal caliber and contour. Percent stenosis per NASCET criteria is 0%. No carotid dissection. Otherwise, no significant atheromatous disease or stenosis of the cervical carotid system. --VERTEBRAL ARTERIES: Dominant left vertebral artery. Otherwise, Normal caliber and contour. --VISUALIZED AORTIC ARCH AND BRANCHING VESSELS: Normal caliber and contour. No significant atheromato us disease. --SOFT TISSUES: Normal. --CERVICAL SPINE: Normal. IMPRESSION: 1. Normal CTA head and neck. Percent stenosis per NASCET criteria is 0%. 2. Dominant left vertebral artery. Reviewed, dictated and finalized at location [facility]. TOLOGIST
--- NOTE | 2024-10-26 13:11 | ECG_ITS ---
Test Date: 2024-10-26 13:35:22 Measurements Intervals [place] Rate: 65 P: 19 NE: 152 QRS: 18 QRSD: 95 T: 3 QT: 394 QTc: 412 Interpretive Statements SINUS RHYTHM POSSIBLE INFERIOR MYOCARDIAL INFARCTION , PROBABLY OLD [30 ms Q WAVE IN II/aVF] ABNORMAL ECG Electronically Signed On 10-26-2024 17:41:16 SETTLEMENT AGENT by Luis Eduardo Bennett M.D.
--- NOTE | 2024-10-26 13:12 | ED.DIZZY ---
HPI - Dizziness General Chief Complaint: Dizziness Stated Complaint: dizziness Time Seen by Provider: 10/26/24 12:57 History of Present Illness HPI Narrative: 39-year-old otherwise healthy male presenting to the emergency room with chief complaint of vertiginous symptoms. Patient was otherwise in his normal state of health, finished work last night and said the couch. When he got up suddenly he felt a profound nauseousness and dizziness sensations like he was intoxicated. Yet the room spinning around him and did not remit until he stops moving entirely and laid down completely flat. He threw up multiple times while he tried getting up unchanged positions. Denies any alcohol intake or any substance use. Denies any head injuries or traumas recently but does have remote head injury from greater than 10 years prior. Denies any flu-like symptoms, denies any headache or neck pain. Was otherwise in his normal state of health. No new medications aside from Zyrtec. Related Data Allergies Allergy/AdvReac Type Severity Reaction Status Date / Time No Known Allergies Allergy Verified 09/23/24 13:18 Review of Systems Review of Systems: As reviewed above in HPI [facility] Past Medical History Medical History Wart of hand Asthma Hx of migraines BMI 31.0-31.9,adult Apnea Fatigue Screening, lipid Fatigue No active medical problems Family History Family History Father Family history of diabetes mellitus in first degree relative Acute myocardial infarction Diabetes mellitus Obesity Mother Emphysema of lung COPD (chronic obstructive pulmonary disease) Sibling No problems noted. Social History Social History Smoking status: Never smoker Smokeless tobacco user: chewing tobacco Second hand tobacco smoke exposure: No Alcohol intake: current Substance use: never Substance use type: does not use Lack of Transportation: No Lack of Food: Never True Current Housing: I Have Housing Concerned About Future Housing: No Difficulty Paying Gas/Electric Bills: No Difficulty Paying for Meds: No Currently Unemployed: No Education: Trade/Vocational Certificate Difficulty w/ Childcare or Family Care: No Living arrangements: with family Occupation/Education: occupation Additional occupation/education comments: welder operator Gender identity (if verbalized by the patient): Male Exam Narrative: GENERAL: [Well-appearing, well-nourished, and in no acute distress.] HEAD: [Normocephalic, atraumatic.] EYES: [PERRLA and EOMI.] Horizontally beating nystagmus bilaterally, no vertical or torsion area nystagmus noted ENT: Nares clear, no rhinorrhea or epistaxis. Mucous membranes moist. NECK: Supple. CHEST: [Clear to auscultation. No respiratory distress.] HEART: [Regular rate and rhythm]. No murmur heard. [Normal peripheral pulses.] ABDOMEN: [Soft, nondistended], [nontender], [No rigidity or guarding] EXTREMITIES: Normal range of motion. [No edema.] SKIN: Warm, dry, no rash. NEURO: [No focal deficits]. Alert and oriented [x3.] No ataxia in the arms or legs. Full strength and sensation throughout both arms and legs, no facial asymmetries. Horizontally beating nystagmus bilaterally. PSYCH: [Normal mood and affect.] Course Vital Signs Vital signs: Vital Signs Temperature 36.8 C 10/26/24 09:50 Pulse Rate 86 10/26/24 09:50 Respiratory Rate 16 10/26/24 09:50 Blood Pressure 131/77 10/26/24 09:50 Pulse Oximetry 97 10/26/24 09:50 Oxygen Delivery Room Air 10/26/24 09:50 Temperature 36.4 C L 10/26/24 15:46 Pulse Rate 79 10/26/24 15:46 Respiratory Rate 18 10/26/24 15:46 Blood Pressure 123/83 10/26/24 15:46 Pulse Oximetry 96 10/26/24 15:46 Oxygen Delivery Room Air 10/26/24 13:04 MDM - Dizziness MDM Narrative Medical decision making narrative: 39-year-old male presenting with persistent vertiginous symptoms even at rest. States he was otherwise in his normal state of health with suddenly felt dizzy and nauseous when he got up suddenly from the couch last night. States he threw up multiple times especially with position changes. If he lies completely flat he does not feel dizzy or like the room is spinning. He states feels like he is intoxicated but denies any alcoholic drinks or intake. Went to bed last night and woke up still feeling the same way. Came to the ER for evaluation. He does have nystagmus on his examination although this was only beating and not centrally or vertically beating. He has no focal findings on his neurological assessment and full strength and sensation throughout. No facial asymmetries. Blood pressure and heart rate within normal limits, no fever or hypoxia. Overall unremarkable examination and likely has signs and symptoms of peripheral vertigo, will rule out central causes although less likely given his exam and history. Workup was ordered including CBC, CMP, CT of the head, he was given fluid bolus, meclizine and Zofran re-evaluated. Workup shows a slight leukocytosis 11.5, normal hemoglobin, normal platelets. Electrolytes within normal limits, normal renal function panel, normal glucose. Head CT shows no acute intracranial abnormalities, no significant interval change from prior. Upon re-evaluation he still had persistent dizziness although the nausea vomiting at since stopped. He was provide Reglan and Benadryl and re-evaluated and still feeling dizzy. Given the persistent vertiginous symptoms we did order a CT angiography of his head neck to rule out central pathology such as vertebral insufficiency or dissection, aneurysm. CT angiography returned normal without any acute process. At this time we gave him 2.5 mg of IV Valium and attempted the Reynold maneuver 2 times for positional vertiginous symptoms. He noted that he had worsening nystagmus and vertiginous symptoms especially with looking to the right. After all medications interventions he had moderate relief of his symptoms but still having occasional dizziness especially with sharp movements especially the right. Nausea vomiting has been under control. I discussed next steps with the patient including need for ear nose and throat follow-up and even potential admission here if he has persistent symptoms. Patient politely declined and thinks he would be better served on home with ENT referral. He was referred to ENT with Dr. Josh Hoffman and given prescriptions for Reglan and meclizine for continued symptom control at home. He was given strict return precautions and he verbalized understanding and was safe for discharge at this time. Medical Records Attestation: I reviewed the patient's medical records. Lab Data Attestation: I reviewed the patient's lab results. 10/26/24 13:41 10/26/24 13:41 Labs: Lab Results 10/26/24 Range/Units 13:41 WBC 11.5 H (4.5-10.0) K/mm3 RBC 5.16 (4.6-6.20) M/mm3 Hgb 16.2 (14.0-18.0) g/dL Hct 46.9 (42.0-52.0) % MCV 90.9 (80-100) fl MCH 31.4 (26-34) pg MCHC 34.5 (32-36) g/dl RDW 11.6 (11.5-14.5) % Plt Count 190 (150-375) k/mm3 MPV 10.1 (7.4-10.4) fl Immature Gran % (Auto) 0.3 (0-0.5) % Neut % (Auto) 78.2 H (45.5-73.1) % Lymph % (Auto) 14.1 L (18.3-44.2) % Ida % (Auto) 6.1 (2.6-8.5) % Eos % (Auto) 1.1 (0-4.4) % Baso % (Auto) 0.2 (0.2-1.2) % Lymph # (Auto) 1.61 (0.9-3.2) K/mm3 Ida # (Auto) 0.7 H (0.1-0.6) K/mm3 Eos # (Auto) 0.1 (0-0.3) K/mm3 Baso # (Auto) 0.0 (0.0-0.1) K/mm3 Abs Immat Gran (auto) 0.03 (0.00-0.031) K/mm3 Absolute Neuts (auto) 9.0 H (1.3-6.7) K/mm3 Absolute Nucleated RBC 0.000 (0.0-0.012) K/mm3 Nucleated RBC % 0.0 (0.0-0.2) % Sodium 137 (137-145) mmol/L Potassium 4.1 (3.4-5.0) mmol/L Chloride 102 (98-107) mmol/L Carbon Dioxide 27 (22-30) mmol/L Anion Gap 8 (4-12) mmol/L BUN 12 (9-20) mg/dL Creatinine 0.82 (0.7-1.3) mg/dL Estim Creat Clear Calc 118 ml/min Estimated GFR > 60 (59 - ) Glucose 103 (65-110) mg/dL Calcium 9.3 (8.4-10.2) mg/dL Total Bilirubin 3.0 H (0.2-1.3) mg/dL AST 23 (17-59) U/L ALT 24 (6-50) U/L Alkaline Phosphatase 62 (38-126) U/L Total Protein 8.0 (6.3-8.2) g/dL Albumin 4.6 (3.5-5.1) g/dL Imaging Data Attestation: I personally reviewed and interpreted this imaging study as follows: My impression: Impressions Head CT 10/26/24 13:37 IMPRESSION: No acute intracranial abnormality or significant change since 02/18/2024 Head/Neck CTA 10/26/24 17:01 IMPRESSION: 1. Normal CTA head and neck. Percent stenosis per NASCET criteria is 0%. 2. Dominant left vertebral artery. Discharge Plan Discharge Clinical Impression: Benign paroxysmal positional vertigo, Persistent postural-perceptual dizziness, Nausea & vomiting Patient Disposition: Home, Self-Care Condition: Stable Instructions: Antibiotic Form, Motion Sickness (ED), Vertigo (ED), Benign Paroxysmal Positional Vertigo (ED), Dizziness (ED) Additional Instructions: Your CT scan and laboratory studies are all reassuring however your symptoms are still persisting and you will need to be evaluated by an search engine optimization strategist. We will send you home with different medications to try for symptom control for nausea, vomiting and dizziness. Take these as needed for continued symptoms. If you have any worsening symptoms please return to the ER otherwise follow-up with the provided search engine optimization strategist. Patient Language: Irish Prescriptions: New meclizine 25 mg tablet 25 mg PO TID PRN (Reason: dizziness) 10 Days Qty: 30 0RF metoclopramide HCl [Reglan] 5 mg tablet 5 mg PO Q8H PRN (Reason: nausea and vomiting) Qty: 20 0RF Follow-up/Referrals: Josh Hoffman MD [Physician] - 2 Days (Benign paroxysmal positional vertigo) Elias Francisco MD [Primary Care Provider] - Time of Disposition: 17:59
[2024-10-26] MEDS: LACTATED RINGERS 1,000 ML 999 ML IV CONT (13:39)
[2024-10-26] MEDS: MECLIZINE HCL 25 MG TABLET PO (13:40)
[2024-10-26] MEDS: ONDANSETRON INJ 4 MG/2 ML VIAL IV PUSH (13:40)
[2024-10-26 13:47] LABS: Basophils Percent Auto 0.2 % (0.2-1.2); Eosinophils Absolute Auto 0.1 K/mm3 (0-0.3); Eosinophils Percent Auto 1.1 % (0-4.4); Hematocrit 46.9 % (42.0-52.0); Hemoglobin 16.2 g/dL (14.0-18.0); Immature Granulocyte Absolute 0.03 K/mm3 (0.00-0.031); Immature Granulocyte Percent A 0.3 % (0-0.5); Lymphocytes Absolute Auto 1.61 K/mm3 (0.9-3.2); Lymphocytes Percent Auto 14.1 % (18.3-44.2); Mean Corpuscular HGB Conc 34.5 g/dl (32-36); Mean Corpuscular Hemoglobin 31.4 pg (26-34); Mean Corpuscular Volume 90.9 fl (80-100); Mean Platelet Volume 10.1 fl (7.4-10.4); Monocytes Absolute Auto 0.7 K/mm3 (0.1-0.6); Monocytes Percent Auto 6.1 % (2.6-8.5); Neutrophils Percent Auto 78.2 % (45.5-73.1); Platelet Count Result 190 k/mm3 (150-375); Red Blood Count 5.16 M/mm3 (4.6-6.20); Red Cell Distribution Width 11.6 % (11.5-14.5); White Blood Count 11.5 K/mm3 (4.5-10.0)
[2024-10-26 13:58] LABS: Alanine Aminotransferase 24 U/L (6-50); Albumin Level 4.6 g/dL (3.5-5.1); Alkaline Phosphatase 62 U/L (38-126); Anion Gap 8 mmol/L (4-12); Aspartate Amino Transferase 23 U/L (17-59); Blood Urea Nitrogen 12 mg/dL (9-20); Calcium 9.3 mg/dL (8.4-10.2); Carbon Dioxide 27 mmol/L (22-30); Chloride 102 mmol/L (98-107); Estimated CRCL calculation 118 ml/min; Estimated Glomerular Filt Rate > 60; Glucose 103 mg/dL (65-110); Potassium 4.1 mmol/L (3.4-5.0); Sodium 137 mmol/L (137-145)
[2024-10-26] MEDS: METOCLOPRAMIDE HCL INJ 10 MG/2 ML VIAL IV PUSH (15:06)
[2024-10-26] MEDS: diphenhydrAMINE HCl INJ 50 MG/ML VIAL 25 MG IV PUSH (15:06)
[2024-10-26] MEDS: diazePAM INJ (*CRX) 10 MG/2 ML SYRINGE 2.5 MG IV PUSH (15:43)
== END 2024-10-26 18:28 | disposition home or self-care (01) ==
PROVIDERS: Emergency Provider Student in an Organized Health Care Education/Training Program; PCP Family Medicine
DX: H81.10 Benign paroxysmal vertigo, unspecified ear (principal); R11.2 Nausea with vomiting, unspecified; J45.909 Unspecified asthma, uncomplicated
CPT/HCPCS: 36415; 70450; 70496; 70498; 80053; 85025; 93005; 96361; 96374; 96375; 99284; A9270; J1200; J2405; J2765; J3360; J7120; Q9967

== ENCOUNTER 2025-06-01 16:03 | Emergency (ER) | payer OTHER, BC, SELFPAY ==
--- OUTSIDE RECORDS SUMMARY | 2025-06-01 16:05 | XMS_ITS | Continuity of Care Document ---
Author Organization [facility] Address [address] [place] [address] Phone Care Team Providers Care Microfilm Technician Name Role Phone Dulce Maria Ram PT [...] Diagnoses Date Provider Providers Copied on Encounter [facility] [address], [place], [place], [id number], tel:[phone] [place] No Information 4 Leanna العراقي. [address] [facility], [address], [place], [address], . tel: [phone] Referring Provider: Jae Awan, [address] [facility] [address], [place], [address]. tel:[phone] [facility], [id number], tel:[phone] [place] No Information 4 Muehl Dulce Maria. [address] [facility], [address], [place], [place], [facility], . tel: [phone] Referring Provider: Jae Awan [address], [place], [address]. tel:[phone], [place], [place], [id number], tel:[phone] [place] No Information 4 Muehl Dulce Maria. [address] [place] [address], [address], [place], [place], [facility], . tel: [phone] Referring Provider: Jae Awan [facility] [address] [facility] [address], [place], [address]. tel:[phone] [address] [address], [place], [place], [id number], tel:[phone] [place] No Information 4 Leslie Vitor. [address] [place] [address], [address], [place], [place], [facility], [place]. tel: [phone] Referring Provider: Jae Awan [facility] [address] [facility] [address], [place], [address]. tel:[phone] [address], [place], [place], [id number], tel:[phone] [place] No Information 4 Leslie Vitor. [address] [facility], [address], [place], [place], [facility], [place]. tel: [phone] Referring Provider: Jae Awan [address] [facility] [address], [place], [address]. tel:[phone], [id number], tel:[phone] [place] Pain in joint involving ankle and foot 4 Leslie Adler. [address] [facility], [address], [place], [address], [place]. tel:[phone] Referring Provider: Jae Awan, [address] [facility] [address], [place], [address]. tel:[phone] Family History Family Member Type Diagnosis Age At Onset No Information Payers Payer name Insurance type Covered democrat ID Authoriza timarleny(s) [employer] SP [id number] Social History Type Description Quantity Date Captured [...]
--- OUTSIDE RECORDS SUMMARY | 2025-06-01 16:05 | XMS_ITS | Clinical Summary ---
Author Organization [facility] [address] [place] Address [address] [place] [id number] Care Team Providers Care Steam Blocker Name Role Phone Elias Francisco MD Unavailable Yennifer Renae RN Unavailable Unavailable Natali Palafox RN Unavailable Unavaila Quentin Mtz NP Primary Care Provid er Allergies No known active allergies Medications hydrOXYzine (ATARAX) 25 mg tablet 05/03/2022 Active albuterol HFA (PROVENTIL HFA,VENTOLIN HFA,PROAIR HFA) 90 mcg/actuation inhaler Inhale 2 puffs every 6 (six) hours as needed for wheezing Active albuterol (PROAIR RESPICLICK) 90 mcg/actuation inhaler Inhale 2 puffs every 6 (six) hours as needed for wheezing Active Active Problems Problem Noted Date Diagnosed Date Mild intermittent asthma without complication Electrocution 08/29/2023 Fracture of skull 01/12/2012 Subarachnoid hemorrhage 01/12/2012 Family History Medical History Relation Name Comments Diabetes Father Heart disease Father COPD Mother Relation Name Status Comments Father Alive Mother Alive Social History Tobacco Use Types Packs/Day Years Used Date Smoking Tobacco: Never Smokeless Tobacco: Current Chew Tobacco Cessation:Counseling Given: Not Answered Sex and Gender Information Value Date Recorded Sex Assigned at Not on file 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 Gender Identity Not on file Sexual Orientation Not on file Obstetrics History Last Filed Vital Signs Vital Sign Reading Time Taken Comments Blood Pressure 136/86 08/29/2023 12:20 PM BUS VAN DRIVER Pulse 69 08/29/2023 12:20 PM BUS VAN DRIVER Temperature 36 C (96.8 F) 08/29/2023 12:20 PM BUS VAN DRIVER Respiratory Rate 18 08/29/2023 12:20 PM BUS VAN DRIVER Oxygen Saturation 98% 08/29/2023 12:20 PM BUS VAN DRIVER Inhaled Oxygen Concentration - - Weight 96.6 kg (213 lb) 08/29/2023 12:20 PM BUS VAN DRIVER Height 172.7 cm (5' 8) 08/29/2023 12:20 PM BUS VAN DRIVER Body Mass Index 32.39 08/29/2023 12:20 PM BUS VAN DRIVER Plan of Treatment Health Maintenance Due Date Last Done Comments Depression Screening 1985 Hepatitis C Screening 1985 DTaP/Tdap/Td Vaccine (1 - Tdap) 1996 Varicella Vaccines (1 of 2 - 13+ 2-dose series) 1997 Hepatitis B Screening 2003 Regular Well Visit/Exam 18-64 2003 Pneumococcal vaccine <65 (1 of 2 - PCV) 2004 HPV Vaccines (1 - 3-dose SCDM series) 2012 Influenza Vaccine (#1) [address] [place] [address] [facility] [place] [address] [employer] [facility] AETNA SIG 65501 WORKERS COMPENSATION GENERIC Care Teams Steam Blocker Relationship Specialty Start Date End Date Quentin Herrera NP [address] [place] [address] PCP - General Family Medicine 07/11/23 Elias Francisco MD Family Medicine 06/26/23 Yennifer Renae, spray cementer Failure Coordinator 07/03/23 Natali Palafox, spray cementer Failure Coordinator 07/04/23
--- OUTSIDE RECORDS SUMMARY | 2025-06-01 16:05 | XMS_ITS | Clinical Summary ---
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 Gender Identity Not on file Sexual Orientation Not on file Plan of Treatment Health Maintenance Due Date Last Done Comments Hepatitis C Virus (HCV) Screening 1985 TdaP Immunization 1985 Hepatitis B Immunization (3 of 3 - 3-dose series) 08/04/1999 06/09/1999, 11/25/1998 Human Papillomavirus (HPV) Immunization (1 - 3-dose SCDM series) 2012 SARS-COV-2 Immunization ( season) 2024 Influenza Immunization (#1) 2025 Respiratory Syncytial Virus (RSV) Immunization (Adult) (1 - 1-dose 75+ series) 2060 DTaP/Tdap/Td Immunization Discontinued 2000, 12/18/1990, 07/03/1990, Additional history exists Meningococcal Immunization (ACWY) Aged Out No longer eligible based on patient's age to complete this topic Pneumococcal Immunization Combined Aged Out No longer eligible based on patient's age to complete this topic Rotavirus Immunization Aged Out No lo nger eligible based on patient's age to complete this topic
--- OUTSIDE RECORDS SUMMARY | 2025-06-01 16:07 | XMS_ITS | Continuity of Care Document ---
Author Organization [facility] Address [address] [place] [address] Phone Care Team Providers Care Wood Boatbuilder Name Role Phone Dulce Maria Ram PT [...] Date Provider Providers Copied on Encounter [facility] [address], [place], [place], [id number], tel:[phone] [place] No Information 4 Leanna العراقي. [address] [facility], [address], [place], [address], . tel: [phone] Referring Provider: Jae Awan, [address] [facility] [address], [place], [address]. tel:[phone] [facility], [id number], tel:[phone] [place] No Information 4 Muehl Dulce Maria. [address] [facility], [address], [place], [place], [facility], . tel: [phone] Referring Provider: Jae Awan [address], [place], [address]. tel:[phone], [place], [place], [id number], tel:[phone] [place] No Information 4 Muehl Dulce Maria. [address] [place] [address], [address], [place], [place], [facility], . tel: [phone] Referring Provider: Jae Awan [facility] [address] [facility] [address], [place], [address]. tel:[phone] [address], [place], [place], [id number], tel:[phone] [place] No Information 4 Leslie Vitor. [address] [place] [address], [address], [place], [place], [facility], [place]. tel: [phone] Referring Provider: Jae Awan [facility] [address], [place], [address]. tel:[phone] [address], [place], [place], [id number], tel:[phone] [place] No Information 4 Leslie Vitor. [address] [facility], [address], [place], [place], [facility], [place]. tel: [phone] Referring Provider: Jae Awan [address] [facility] [address], [place], [address]. tel:[phone], [id number], tel:[phone] [place] Pain in joint involving ankle and foot 4 Leslie Adler. [address] [facility], [address], [place], [address], [place]. tel:[phone] Referring Provider: Jae Awan, [address] [facility] [address], [place], [address]. tel:[phone] Family History Family Member Type Diagnosis Age At Onset No Information Payers Payer name Insurance type Covered constitution party ID Authoriza timarleny(s) [employer] SP [id number] Social History Type Description Quantity Date Captured [...]
--- NOTE | 2025-06-01 16:10 | ED_ITS ---
HPI - URI/Sore Throat General Chief Complaint: Upper Respiratory Infection Stated Complaint: throat pain patient presents to the [facility] with sore throat worse in the morning that began about 3-4 days ago. Patient also noted that during the day he gets a tickle type sensation causing him to cough and needing to drink water. Patient reports his acid reflux is under control with taking the daily Protonix medication. Denies any significant nasal drainage or congestion. Patient reports taking DayQuil at home with minimal relief of symptoms. No known sick contacts. Denies fever, chills, body aches, headache, dizziness, abdominal pain, vomiting, diarrhea. Related Data Home Medications ?Medication ?Instructions ?Recorded ?Confirmed ?Last Taken ?Type pantoprazole 40 mg tablet,delayed 40 mg PO HS 06/01/25 Unknown History release (Protonix) Allergies Allergy/AdvReac Type Severity Reaction Status Date / Time No Known Allergies Allergy Verified 06/01/25 16:11 Review of Systems Constitutional: Constitutional: Reports as per HPI, Denies chills, Denies fatigue, Denies fever(s) and Denies weakness Eyes: Eyes: Reports no additional eye complaints ENT: Reports as per HPI, Denies vertigo, Denies dizziness, Denies nasal congestion and Reports sore throat Cardiovascular: Cardiovascular: Reports no additional cardiovascular complaints Respiratory: Respiratory: Reports as per HPI, Denies chest congestion, Denies cough, Denies dyspnea and Denies wheezing Gastrointestinal: Gastrointestinal: Reports as per HPI, Denies abdominal pain, Denies bloating, Denies constipation, Denies heartburn, Denies diarrhea, Denies nausea and Denies vomiting Genitourinary: Genitourinary: Reports no additional male genitourinary complaints Musculoskeletal: Musculoskeletal: Reports no additional musculoskeletal complaints Integumentary/Breasts: Skin/Breast: Reports as per HPI, Denies erythema and Denies rash Neurologic: Reports as per HPI, Denies vertigo, Denies dizziness and Denies headache(s) Psychiatric: Psychiatric: Reports no additional psychiatric complaints Endocrine: Endocrine: Reports no additional endocrine complaints Hematologic/Lymphatic: Hematologic/Lymphatic: Reports no additional hematologic/lymphatic complaints Allergic/Immunologic: Allergic/Immunologic: Reports as per HPI, Denies lip swelling, Denies throat swelling, Denies tongue swelling and Denies wheezing PMFSH Past Medical History Medical History Wart of hand Asthma Hx of migraines BMI 31.0-31.9,adult Apnea Fatigue Screening, lipid Fatigue No active medical problems Family History Family History Father Family history of diabetes mellitus in first degree relative Acute myocardial infarction Diabetes mellitus Obesity Mother Emphysema of lung COPD (chronic obstructive pulmonary disease) Sibling No problems noted. Social History Social History Smoking status: Never smoker Smokeless tobacco user: chewing tobacco Second hand tobacco smoke exposure: No Alcohol intake: current Substance use: never Substance use type: does not use Do You Feel Safe in your Home?: Yes Lack of Transportation: No Lack of Food: Never True Current Housing: I Have Housing Concerned About Future Housing: No Difficulty Paying Gas/Electric Bills: No Difficulty Paying for Meds: No Currently Unemployed: No Education: Trade/Vocational Certificate Difficulty w/ Childcare or Family Care: No Living arrangements: with family Occupation/Education: occupation 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 Gender identity (if verbalized by the patient): Male Exam Const: General: healthy appearing and no acute distress Nutritional Appear ance: well nourished Orientation/consciousness: patient oriented x3 Limitations: no limitations HENMT: Head: normal to inspection Ears: external ears normal and TM's normal bilaterally Face/Nose/Sinus: Normal external nose present and Normal nares present Face and sinus: normal facial exam and sinuses nontender Mouth: Yes Normal oral and palatal mucosa present, Yes lip normal and Yes moist mucous membranes Throat: posterior oropharynx abnormal ( Mild erythema and edema noted. No exudate) Neck: Neck: normal visual inspection and no lymphadenopathy Resp: Effort & Inspection: normal respiratory effort Auscultation: clear to auscultation bilaterally Cardio: Rate: regular rate Rhythm: regular rhythm Skin: General skin exam: normal color Rashes: no rashes Wounds: no wounds Neuro: General: patient oriented x3 Speech: normal speech Gait exam (Neuro): Normal gait present Extrem: General: no clubbing, cyanosis or edema and no pedal edema Psych: Mental Status: mental status grossly normal Affect: normal affect Attitude: cooperative Course Course Level of Care: Express Care Visit MDM - URI/Sore Throat MDM Narrative Medical decision making narrative: strep negative, will send culture. Likely postnasal drainage Discharge instructions reviewed with patient, as well as provided in writing per nursing staff. The instructions also include specific and strict return/GO TO THE ER as well as f/u information. All questions have been answered, and the patient deny any further questions with discharge and discharge plan. Differential Diagnosis Differential diagnosis: Likely upper respiratory infection, otitis media, sinusitis, viral infection, bronchitis and pharyngitis Medical Records Attestation: I reviewed the patient's medical records. Lab Data Attestation: I reviewed the patient's lab results. Discharge Plan Discharge Clinical Impression: Pharyngitis Patient Disposition: Home Condition: Stable Instructions: Antibiotic Form, Pharyngitis (ED) Additional Instructions: The rapid strep swab was negative today at [facility]. You will be notified in a few days if the culture comes back positive for strep, and appropriate antibiotics will be called in for him at that time. His symptoms are likely due to a viral illness, which is not treated with antibiotics. Viral symptoms can be present for up to 10-14 days. Take Tylenol or ibuprofen for fever or pain. Rest and stay hydrated. Follow up with your PCP in 10 days if symptoms are not improving, or sooner if symptoms are worsening. Patient Language: Croatian Prescriptions: New prednisone 50 mg tablet 50 mg PO DAILY Qty: 5 0RF No Action pantoprazole [Protonix] 40 mg tablet,delayed release (DR/EC) 40 mg PO HS Follow-up/Referrals: Elias Francisco MD [Primary Care Provider] - Time of Disposition: 16:29
[2025-06-01 16:11] VITALS: BP 142/91; PULSE 87; RESP 18; TEMP 36.6; O2SAT 99
[2025-06-01 16:30] LABS: EDSTREPNEGPOS1 Negative (Negative)
== END 2025-06-01 16:32 | disposition home or self-care (01) ==
PROVIDERS: Emergency Provider Nurse Practitioner Family; PCP Family Medicine
DX: J02.9 Acute pharyngitis, unspecified (principal); F17.220 Nicotine dependence, chewing tobacco, uncomplicated; J45.909 Unspecified asthma, uncomplicated
CPT/HCPCS: 87081; 87880; 99213; G0463

== ENCOUNTER 2025-06-16 14:19 | Emergency (ER) | payer OTHER, BC, SELFPAY ==
--- OUTSIDE RECORDS SUMMARY | 2014-05-23 10:00 | XMS_ITS | Continuity of Care Document ---
Author Organization [facility] Address [address] [place] [address] Phone Care Team Providers Care Labor Relations Officer Name Role Phone Dulce Maria Ram PT Unavailable Unavailable Procedures Procedure Date PT RE-EVALUATION THERAPEUTIC EXERCISES NEUROMUSCULAR RE-ED FUNC ACTIVITY THERAPEUTIC EXERCISES NEUROMUSCULAR RE-ED FUNC ACTIVITY THERAPEUTIC EXERCISES NEUROMUSCULAR RE-ED FUNC ACTIVITY THERAPEUTIC EXERCISES NEUROMUSCULAR RE-ED FUNC ACTIVITY THERAPEUTIC EXERCISES NEUROMUSCULAR RE-ED FUNC ACTIVITY PT EVALUATION THERAPEUTIC EXERCISES NEUROMUSCULAR RE-ED FUNC ACTIVITY Advance Directives Directive Yes / No Effective Date File Name No Information Encounters Encounter Description Practice Location Reason(s) For Visit Diagnoses Date Provider Providers Copied on Encounter [facility] [address], [place], [place], [id number], tel:[phone] [place] No Information 4 Leanna العراقي. [address], [address], [place], [address], . tel: [phone] Referring Provider: Jae Awan, [address], [place], [address]. tel:[phone] [facility], [id number], tel:[phone] [place] No Information 4 Muehl Dulce Maria. [address], [address], [place], [place], [facility], . tel: [phone] Referring Provider: Jae Awan [address], [place], [address]. tel:[phone], [place], [place], [id number], tel:[phone] [place] No Information 4 Muehl Dulce Maria. [address] [place] [address], [address], [place], [place], [facility], . tel: [phone] Referring Provider: Jae Awan [address], [place], [address]. tel:[phone] [address], [place], [place], [id number], tel:[phone] [place] No Information 4 Leslie Vitor. [address] [place] [address], [address], [place], [place], [facility], [place]. tel: [phone] Referring Provider: Jae Awan [facility] [address], [place], [address]. tel:[phone] [address], [place], [place], [id number], tel:[phone] [place] No Information 4 Leslie Vitor. [address], [address], [place], [facility], [place]. tel: [phone] Referring Provider: Jae Awan [address], [place], [address]. tel:[phone], [id number], tel:[phone] [place] Pain in joint involving ankle and foot 4 Leslie Adler. [address], [address], [place], [address], [place]. tel:[phone] Referring Provider: Jae Awan, [address], [place], [address]. tel:[phone] Family History Family Member Type Diagnosis Age At Onset No Information Payers Payer name Insurance type Covered alliance party ID Authoriza timarleny(s) [employer] SP [id number] Social History Type Description Quantity Date Captured Comments Sex Male Smoking Status No Information Chief Complaint And Reason For Visit No Information Reason For Referral Reason For Referral No Information History Of Present Illness Encounter Date Complaint History Of Prese nt Illness No Information Functional Status Date Functional Assessmen t No Information Instructions Date Instruction Additional Infor mation No Information Assessments Type Assessment Date No Information Patient Care Teams Name Effective Dates (start - stop) Status Members No Information
--- OUTSIDE RECORDS SUMMARY | 2025-06-16 14:23 | XMS_ITS | Clinical Summary ---
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 Gender Identity Not on file Sexual Orientation Not on file Obstetrics History Last Filed Vital Signs Vital Sign Reading Time Taken Comments Blood Pressure 136/86 08/29/2023 12:20 PM PRIMARY MONTESSORI TEACHER Pulse 69 08/29/2023 12:20 PM PRIMARY MONTESSORI TEACHER Temperature 36 C (96.8 F) 08/29/2023 12:20 PM PRIMARY MONTESSORI TEACHER Respiratory Rate 18 08/29/2023 12:20 PM PRIMARY MONTESSORI TEACHER Oxygen Saturation 98% 08/29/2023 12:20 PM PRIMARY MONTESSORI TEACHER Inhaled Oxygen Concentration - - Weight 96.6 kg (213 lb) 08/29/2023 12:20 PM PRIMARY MONTESSORI TEACHER Height 172.7 cm (5' 8) 08/29/2023 12:20 PM PRIMARY MONTESSORI TEACHER Body Mass Index 32.39 08/29/2023 12:20 PM PRIMARY MONTESSORI TEACHER Plan of Treatment Health Maintenance Due Date [...] Vaccine (#1) [address] [place] [id number] [facility] [place] [id number] [employer] [facility] AETNA SIG [id number] WORKERS COMPENSATION GENERIC Care Teams Transmitter Engineer Relationship Specialty Start Date End Date Quentin Herrera NP [address] [place] [address] PCP - General Family Medicine 07/11/23 Elias Francisco MD Family Medicine 06/26/23 Yennifer Renae, food products sales representative Failure Coordinator 07/03/23 Natali Palafox, food products sales representative Failure Coordinator 07/04/23
--- OUTSIDE RECORDS SUMMARY | 2025-06-16 14:23 | XMS_ITS | Clinical Summary ---
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
[2025-06-16 14:34] VITALS: BP 117/90; PULSE 93; RESP 17; TEMP 36.1; O2SAT 100
--- NOTE | 2025-06-16 15:26 | ED_ITS ---
HPI - URI/Sore Throat General Chief Complaint: Upper Respiratory Infection Stated Complaint: congestion Time Seen by Provider: 06/16/25 15:00 Source: patient, RN notes reviewed and old records reviewed Mode of arrival: ambulatory Limitations: no limitations History of Present Illness HPI Narrative: 40 year old male presents to [facility] care with complaints of 2 week history of cough with production of green mucous, yellow nasal drainage, left ear pressure with decreased hearing. Patient reports no known fevers, chills or sweats. He has been taking Sudafed, using nasal flonase and taking DayQuil for his symptom s. Patient was treated with Steroids on the for sore throat. Patient reports no shortness of breath or chest pressure. MD elicited complaint: cough (productive cough,), rhinorrhea and nasal congestion (yellow nasal discharge, ear pain and pressure left ear with decreased hearing) Onset (ago): week(s) (2) Consistency: progressively worsening Description of mucous: yellow and green Able to tolerate fluids by mouth: Yes Associated symptoms: rhinorrhea, nasal congestion, cough and ear pain (left with decreased hearing) Related Data Home Medications ?Medication ?Instructions ?Recorded ?Confirmed ?Last Taken ?Type pantoprazole 40 mg tablet,delayed 40 mg PO HS 06/01/25 Unknown History release (Protonix) Allergies Allergy/AdvReac Type Severity Reaction Status Date / Time No Known Allergies Allergy Verified 06/16/25 14:44 Review of Systems Review of Systems: CONSTITUTIONAL: Reports malaise, no chills, sweats, or fever. EYES: Denies visual changes, redness, or discharge. ENT: Reports rhinorrhea, congestion, sinus pain,left otalgia and no sore throat. CARDIOVASCULAR: Denies chest pain, palpitations, or edema. RESPIRATORY: Reports cough productive of green sputum.? Denies dyspnea. GASTROINTESTINAL: Denies abdominal pain, nausea, vomiting, diarrhea SKIN: Denies rash or itching. MUSCULOSKELETAL: Denies myalgia. NEUROLOGIC: Denies headache, reports facial pressure. All systems reviewed & are unremarkable except as noted in HPI and below PMFSH Past Medical History Medical History GERD (gastroesophageal reflux disease) Wart of hand Asthma Hx of migraines BMI 31.0-31.9,adult Apnea Fatigue Screening, lipid Fatigue No active medical problems Family History Family History Father Family history of diabetes mellitus in first degree relative Acute myocardial infarction Diabetes mellitus Obesity Mother Emphysema of lung COPD (chronic obstructive pulmonary disease) Sibling No problems noted. Social History Social History Smoking status: Never smoker Smokeless tobacco user: chewing tobacco Second hand tobacco smoke exposure: No Alcohol intake: current Substance use: never Substance use type: does not use Do You Feel Safe in your Home?: Yes Lack of Transportation: No Lack of Food: Never True Current Housing: I Have Housing Concerned About Future Housing: No Difficulty Paying Gas/Electric Bills: No Difficulty Paying for Meds: No Currently Unemployed: No Education: Trade/Vocational Certificate Difficulty w/ Childcare or Family Care: No Living arrangements: with family Occupation/Education: occupation 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 There is no relevant family history pertinent to the presenting complaint Exam Narrative: GENERAL: Well-appearing, well-nourished, and in no acute distress. HEAD: Normocephalic EYES: PERRLA, conjunctivae clear ENT: Nares clear, turbinates edematous and erythematous, yellow discharge, facial pressure. Mucous membranes moist. TM pearly terry with dull light reflex bilaterally; no tragal tenderness, reports discomfort and decreased hearing. Oropharynx erythematous without lesions. Tonsils not enlarged and without exudate, no drooling, no hoarseness, no trismus, post nasal drainage noted,uvula midline. NECK: Supple. No lymphadenopathy CHEST: Clear to auscultation, breath sounds equal. No wheezing, rhonchi, rales, or stridor. No respiratory distress, speaks in full sentences.productive cough, SAO2 100% on room air HEART: Regular rate and rhythm. No murmur heard. SKIN: Warm, dry, no rash. NEURO: Alert and oriented x3. PSYCH: Normal mood and affect Course Course Emergency Course: Patient is aware of diagnosis, understands and agrees to treatment plan.? Anticipatory guidance given.? Patient agrees to follow-up as directed and is aware of reasons to seek care at the emergency department. Portions of this record may have been created with voice recognition software Level of Care: Express Care Visit Vital Signs Vital signs: Vital Signs Temperature 36.1 C L 06/16/25 14:34 Pulse Rate 93 06/16/25 14:34 Respiratory Rate 17 06/16/25 14:34 Blood Pressure 117/90 06/16/25 14:34 Pulse Oximetry 100 06/16/25 14:34 Oxygen Delivery Room Air 06/16/25 14:34 Temperature 36.1 C L 06/16/25 14:34 Pulse Rate 93 06/16/25 14:34 Respiratory Rate 17 06/16/25 14:34 Blood Pressure 117/90 06/16/25 14:34 Pulse Oximetry 100 06/16/25 14:34 Oxygen Delivery Room Air 06/16/25 14:34 Reviewed MDM - URI/Sore Throat MDM Narrative Medical decision making narrative: Differential diagnosis considered: Valles virus, strep pharyngitis, allergic rhinitis, upper respiratory tract infection, sinusitis, rhinosinusitis, nasopharyngitis. viral pharyngitis, otitis media, otitis externa, pneumonia, bronchitis, viral cough syndrome, viral syndrome, and influenza.? Exam findings show no acute concerns or changes; patient is non-toxic appearing and is in no distress.? Patient is appropriate for outpatient treatment and follow-up. Differential Diagnosis Differential diagnosis: Likely upper respiratory infection, otitis media, sinusitis, viral infection and other (productive cough) Medical Records Attestation: I reviewed the patient's medical records. Lab Data Attestation: I reviewed the patient's lab results. Critical Care Time Critical Care Time Critical Care Time: No Discharge Plan Discharge Clinical Impression: Ear pain, left Sinusitis Qualifiers: Sinusitis location: pansinusitis Chronicity: acute Recurrence: not specified as recurrent Qualified Code(s): J01.40 - Acute pansinusitis, unspecified Patient Disposition: Home Condition: Stable Instructions: Antibiotic Form, Upper Respiratory Infection (ED) Additional Instructions: Increase fluids especially juices and water [id number] cough and cold medicine of your choice for your symptoms Zyrtec Claritin or Joselyn daily include plain Sudafed heat to the face 20-30 minutes 4-6 times a day for pain Salt water gargles, throat lozenges or throat sprays as desired Antibiotic as directed--finished the medication Tylenol or ibuprofen for fever pain If your symptoms persist, change or worsen significantly before you can contact your personal physician then please, without delay, go to the emergency department for further evaluation. Follow-up with PCP in 7-10 days or sooner if needed Follow up with PCP soon in regards to your blood pressure which is elevated above threshold for referral. Blood pressure above 120/80 may indicate pre- hypertension. 117/90 Patient Language: Costa Rican Prescriptions: New amoxicillin-pot clavulanate 875-125 mg tablet 1 tablet PO Q12H Qty: 20 0RF No Action pantoprazole [Protonix] 40 mg tablet,delayed release (DR/EC) 40 mg PO HS Follow-up/Referrals: Elias Francisco MD [Primary Care Provider, [facility]] Time of Disposition: 15:31 Quality [place] Coma Scale Eyes: Open Verbal: Oriented and Alert Motor: Follows Commands [place] Coma Total Score: 15
== END 2025-06-16 15:40 | disposition home or self-care (01) ==
PROVIDERS: Emergency Provider Registered Nurse; PCP Family Medicine
DX: H92.02 Otalgia, left ear (principal); J01.40 Acute pansinusitis, unspecified; K21.9 Gastro-esophageal reflux disease without esophagitis; J45.909 Unspecified asthma, uncomplicated
CPT/HCPCS: 99213; G0463

== ENCOUNTER 2025-06-25 11:35 | Outpatient (CLI) | payer OTHER, BC, SELFPAY ==
--- NOTE | ~2025-06-25 | XR_ITS ---
EXAMINATION: XR chest 2V, 06/25/2025 11:50 CDT HISTORY: R05.3 - Chronic cough with phlegm COMPARISON: No comparisons available. Technique: 2 views obtained. Findings: The lungs are clear, no effusion. No pneumothorax. Heart is normal size. Mediastinal and hilar contours are within normal limits. Bony thorax no acute abnormality. Impression: No acute cardiopulmonary abnormality. Reviewed, dictated and finalized at location A. Impression: No acute cardiopulmonary abnormality.
--- OUTSIDE RECORDS SUMMARY | 2025-06-25 12:40 | XMS_ITS | Clinical Summary ---
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 Gender Identity Not on file Sexual Orientation Not on file Obstetrics History Last Filed Vital Signs Vital Sign Reading Time Taken Comments Blood Pressure 136/86 08/29/2023 12:20 PM PATHOLOGY TECHNOLOGIST Pulse 69 08/29/2023 12:20 PM PATHOLOGY TECHNOLOGIST Temperature 36 C (96.8 F) 08/29/2023 12:20 PM PATHOLOGY TECHNOLOGIST Respiratory Rate 18 08/29/2023 12:20 PM PATHOLOGY TECHNOLOGIST Oxygen Saturation 98% 08/29/2023 12:20 PM PATHOLOGY TECHNOLOGIST Inhaled Oxygen Concentration - - Weight 96.6 kg (213 lb) 08/29/2023 12:20 PM PATHOLOGY TECHNOLOGIST Height 172.7 cm (5' 8) 08/29/2023 12:20 PM PATHOLOGY TECHNOLOGIST Body Mass Index 32.39 08/29/2023 12:20 PM PATHOLOGY TECHNOLOGIST Plan of Treatment Health Maintenance Due Date [...] Vaccine (#1) [address] [place] [address] [facility] [place] [id number] [facility] AETNA SIG [id number] WORKERS COMPENSATION GENERIC Care Teams Software Development Analyst Relationship Specialty Start Date End Date Quentin Herrera NP [address] [place] [address] PCP - General Family Medicine 07/11/23 Elias Francisco MD Family Medicine 06/26/23 Yennifer Renae, reversal print inspector Failure Coordinator 07/03/23 Natali Palafox, reversal print inspector Failure Coordinator 07/04/23
--- OUTSIDE RECORDS SUMMARY | 2025-06-25 12:40 | XMS_ITS | Clinical Summary ---
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
[2025-06-25 13:20] LABS: Alanine Aminotransferase 29 U/L (6-50); Albumin Level 4.4 g/dL (3.5-5.1); Alkaline Phosphatase 73 U/L (38-126); Aspartate Amino Transferase 26 U/L (17-59); Bilirubin,Total 1.4 mg/dL (0.2-1.3); Total Protein 7.6 g/dL (6.3-8.2)
[2025-06-26 08:08] LABS: Cytomegalovirus (CMV) Ab, IgG >10.00 U/mL (0.00-0.59); Cytomegalovirus (CMV) Ab, IgM <30.0 AU/mL (0.0-29.9)
[2025-06-26 13:08] LABS: EBV Nuclear Antigen Ab, IgG 100.0 U/mL (0.0-17.9)
== END 2025-06-25 11:36 | disposition home or self-care (01) ==
PROVIDERS: PCP Family Medicine; Visit Provider Physician Assistant Medical
DX: R05.3 Chronic cough (principal); R17 Unspecified jaundice; R53.83 Other fatigue; Z86.19 Personal history of other infectious and parasitic diseases
CPT/HCPCS: 36415; 71046; 80076; 86644; 86645; 86664; 86665

== ENCOUNTER 2025-07-29 16:05 | Emergency (ER) | payer OTHER, BC, SELFPAY ==
[2025-07-29 16:11] VITALS: BP 128/90; PULSE 86; RESP 18; TEMP 36.6; O2SAT 98
--- NOTE | 2025-07-29 16:11 | ED_ITS ---
HPI - Wound/Laceration General Chief Complaint: Wound/Laceration Stated Complaint: Head Cut Source: patient, RN notes reviewed and old records reviewed Mode of arrival: ambulatory Limitations: no limitations History of Present Illness HPI narrative: 40-year-old male presents to the [facility] with a laceration to the right side of his head. Occurred this morning. States that he hit his head on a piece of a metal equipment. Bleeding controlled. Had cleaned the site and applied butterflies. Patient denies any loss of consciousness. Denies any blurry vision or change in vision. Denies any headaches, neck pain Last Tdap patient reports receiving at [facility] 1.5 to 2 years ago. Related Data Home Medications ?Medication ?Instructions ?Recorded ?Confirmed ?Last Taken ?Type pantoprazole 40 mg tablet,delayed 40 mg PO HS 06/01/25 07/29/25 Unknown History release (Protonix) Allergies Allergy/AdvReac Type Severity Reaction Status Date / Time No Known Allergies Allergy Verified 07/29/25 16:09 Review of Systems 2 Review of Systems: All systems reviewed & are unremarkable except as noted in HPI and below Constitutional: Constitutional: Reports no additional constitutional complaints ENT: Reports system reviewed and no additional complaints, except as documented Cardiovascular: Cardiovascular: Reports no additional cardiovascular complaints, Denies chest pain and Denies dyspnea Respiratory: Respiratory: Reports no additional respiratory complaints, Denies chest congestion, Denies cough and Denies dyspnea Musculoskeletal: Musculoskeletal: Reports no additional musculoskeletal complaints Integumentary/Breasts: Skin/Breast: Reports as per HPI [facility] Past Medical History Medical History GERD (gastroesophageal reflux disease) Wart of hand Asthma Hx of migraines BMI 31.0-31.9,adult Apnea Fatigue Screening, lipid Fatigue No active medical problems Family History Family History Father Family history of diabetes mellitus in first degree relative Acute myocardial infarction Diabetes mellitus Obesity Mother Emphysema of lung COPD (chronic obstructive pulmonary disease) Sibling No problems noted. Social History Social History Smoking status: Never smoker Smokeless tobacco user: chewing tobacco Second hand tobacco smoke exposure: No Alcohol intake: current Substance use: never Substance use type: does not use Do You Feel Safe in your Home?: Yes Lack of Transportation: No Lack of Food: Never True Current Housing: I Have Housing Concerned About Future Housing: No Difficulty Paying Gas/Electric Bills: No Difficulty Paying for Meds: No Currently Unemployed: No Education: Trade/Vocational Certificate Difficulty w/ Childcare or Family Care: No Living arrangements: with family Occupation/Education: occupation Additional occupation/education comments: welder manufacture Gender identity (if verbalized by the patient): Male Comments At the time of my signature, I reviewed and agree with the nursing past medical, surgical, social, and family history. There is no relevant family history pertinent to the patient complaint. Exam 2 Const: General: cooperative, healthy appearing, comfortable, no acute distress, well developed, alert and well nourished Nutritional Appearance: w ell nourished Orientation/consciousness: patient oriented x3 Limitations: no limitations HENMT: Head: normal to inspection Head images: 1. 2 cm irregular laceration, bleeding controlled Eyes: General: appearance normal, both eyes and all related structures A lignment and Position: alignment normal Neck: Neck: normal visual inspection, full ROM, no lymphadenopathy and no meningeal signs Chest: Chest palpation & inspection: normal inspection of the chest Resp: Effort & Inspection: normal respiratory effort and able to speak in complete sentences Auscultation: clear to auscultation bilaterally, no crackles, no rales, no rhonchi and no wheezes Cardio: Rate: regular rate Skin: General skin exam: normal color and no rashes or lesions noted Neuro: General: patient oriented x3, gait normal, moves all extremities and no meningeal signs Cognition (Neuro): normal cognition Speech: normal speech Gait exam (Neuro): Normal gait present Extrem: General: normal to inspection, full ROM, capillary refill normal and normal gait Psych: Appearance: grossly normal and well kempt Mental Status: mental status grossly normal Speech and movement: Normal speech and movement present and Clear speech present Affect: normal affect Attitude: cooperative Course Course Level of Care: Express Care Visit Vital Signs Vital signs: Vital Signs Temperature 97.9 F 07/29/25 16:11 Pulse Rate 86 07/29/25 16:11 Respiratory Rate 18 07/29/25 16:11 Blood Pressure 128/90 07/29/25 16:11 Pulse Oximetry 98 07/29/25 16:11 Oxygen Delivery Room Air 07/29/25 16:11 Temperature 97.9 F 07/29/25 16:11 Pulse Rate 86 07/29/25 16:11 Respiratory Rate 18 07/29/25 16:11 Blood Pressure 128/90 07/29/25 16:11 Pulse Oximetry 98 07/29/25 16:11 Oxygen Delivery Room Air 07/29/25 16:11 Reviewed Procedures Laceration Laceration 1: Date: 07/29/25 Time: 16:45 Site: scalp Side (If applicable): right Size (cm): 2 Description: irregular Depth: simple, single layer Local Anesthetic: lidocaine 1% (4.5) Pre-repair: wound explored and irrigated (300mls) ====== Skin Level ====== Skin layer closed with: nylon Size (cm): 5-0 Number of sutures: 4 Technique: simple, interrupted ====== Subcutaneous Layer ====== ====== Muscle Layer ====== ====== Tendon Layer ====== Dressing: Procedure explained to the patient, verbal consent obtained. Area cleaned with wound cleanser, irrigated with 300 mils of saline. Total of 4.5 mils of lidocaine injected, anesthesia achieved. Four sutures placed, patient tolerated procedure well. MDM - Wound/Laceration MDM Narrative Medical decision making narrative: Patient sitting in exam room. Patient is nontoxic, vitals stable. Patient presents with laceration repair. Patient with no signs or symptoms of a head injury, laceration repaired without issue. Patient appropriate for outpatient treatment with close follow-up Discharge instructions reviewed with patient, as well as provided in writing per nursing staff. The instructions also include specific and strict return/GO TO THE ER as well as f/u information. All questions have been answered, and the patient deny any further questions with discharge and discharge plan. Some parts of this dictation were generated by voice recognition software and may contain typographical and/or grammatical inaccuracies. Differential Diagnosis Differential diagnosis: Likely laceration, abrasion and avulsion of skin Critical Care Time Critical Care Time Critical Care Time: No Discharge Plan Discharge Clinical Impression: Minor head trauma Laceration of scalp Qualifiers: Encounter type: initial encounter Qualified Code(s): S01.01XA - Laceration without foreign body of scalp, initial encounter Patient Disposition: Home Condition: Stable Instructions: Antibiotic Form, Care For Your Stitches (ED), Laceration (DC), Head Laceration (ED) Additional Instructions: Keep area clean dry wash soapy water daily, pat dry. Follow-up with primary care provider in 7-10 days for suture removal If you develop a severe headache, blurry vision, change in vision, nausea or vomiting or any new concerns please go directly to the emergency room Patient Language: Yoruba Prescriptions: No Action pantoprazole [Protonix] 40 mg tablet,delayed release (DR/EC) 40 mg PO HS Airsupra 90-80 mcg/actuation HFA aerosol inhaler 2 inh inhalation ONCE Qty: 10.7 0RF Rx Instructions: as a single dose; may repeat up to 6 doses per day (12 inhalations) Follow-up/Referrals: Elias Francisco MD [Primary Care Provider, Family Practice] - 1 Week Stand Alone Forms: Work/School Release IP Time of Disposition: 17:01
--- OUTSIDE RECORDS SUMMARY | 2025-07-29 17:26 | XMS_ITS | Clinical Summary ---
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
--- OUTSIDE RECORDS SUMMARY | 2025-07-29 17:26 | XMS_ITS | Clinical Summary ---
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 Gender Identity Not on file Sexual Orientation Not on file Obstetrics History Last Filed Vital Signs Vital Sign Reading Time Taken Comments Blood Pressure 136/86 08/29/2023 12:20 PM CLASS C DRIVER Pulse 69 08/29/2023 12:20 PM CLASS C DRIVER Temperature 36 C (96.8 F) 08/29/2023 12:20 PM CLASS C DRIVER Respiratory Rate 18 08/29/2023 12:20 PM CLASS C DRIVER Oxygen Saturation 98% 08/29/2023 12:20 PM CLASS C DRIVER Inhaled Oxygen Concentration - - Weight 96.6 kg (213 lb) 08/29/2023 12:20 PM CLASS C DRIVER Height 172.7 cm (5' 8) 08/29/2023 12:20 PM CLASS C DRIVER Body Mass Index 32.39 08/29/2023 12:20 PM CLASS C DRIVER Plan of Treatment Health Maintenance Due [...] Vaccine (#1) [address] [place] [address] [facility] [place] [place] [address] [facility] AETNA SIG [id number] WORKERS COMPENSATION GENERIC Care Teams Leave Manager Relationship Specialty Start Date End Date Quentin Herrera NP [address] [place] [address] PCP - General Family Medicine 07/11/23 Elias Francisco MD Family Medicine 06/26/23 Yennifer Renae, professional poker player Failure Coordinator 07/03/23 Natali Palafox, professional poker player Failure Coordinator 07/04/23 Tiffanie Sesay Primary Editor News 07/03/25
--- OUTSIDE RECORDS SUMMARY | 2025-07-29 17:27 | XMS_ITS | Data Portability ---
Author Organization [facility], Main Office Address [address] [place] [address] Care Team Providers Care Air Sampler Name Role Phone ESTUARDO MOSS Primary Care Provider Assessment No assessment recorded. Plan of Treatment Reminders Order Date Submit Date Provider Last Modified By Organization Details Last Modified Time Details Appointments None recorded. Lab None recorded. Referral physical therapist referral 2024 025 MICHELLE Not available 16:32:59 Procedures None recorded. Surgeries None recorded. Imaging None recorded. Medication Orders None recorded. Patient TargetsNo targets recorded. Patient Instructions Encounter Date Encounter Id Patient Instructions Last Modified By Organization Details Last Modified Time 10/29/2024 [id number] discussed with patient and his spouse for a PT referral for [place]-Hallpike testing and Reynold maneuvers to ensure that the maneuvers are being done correctly and to be under close supervision. Continue meclizine as needed. We will follow-up with results of PT findings. [email or web address] Not available 10/29/2024 11:14:02 Reason for Referral Physical Therapist Referral for Benign paroxysmal positional vertigo Referring Physician: Carolyn Bolanos, Otolaryngology, Encounter Date: 10/29/2024 Problems Name Problem SNOMED Code Status Onset Date Resolution Date Notes Provider Name and Address Organization Details Recorded Time Benign paroxysmal positional vertigo 415776398 Active 025 Carolyn Villalobos RN [facility], [facility] 5 11:09:07 Benign paroxysmal positional vertigo nystagmus 069199795 Active 025 JESUS Mack [address] [facility] [address], [place], [address] , [facility] 5 11:12:23 Problem Notes None recorded. Medical Equipment None Reported. Allergies No known drug allergies Medications Name Sig Start Date Stop Date Status Note LastModified by Organization Details LastModified Time meclizine active Not Available Not Otilia ilable Not Available Vitamin D active Not Available Not Otilia ilable Not Available Vitals Date Recorded Body height Body mass index (BMI) Body weight Body temperature Provider Name and Address Organization Details Last Updated DateTime 10/29/2024 172.72 cm 33 kg/m2 21976.54 g 98 [degF] Carolyn Villalobos RN [place] [facility] [employer] 10/29/2024 10:54:47 Social History None recorded. Functional Status None recorded. Mental Status None recorded. Family History Nothing Reported Notes:NO ENT Medical History No medical history recorded. Past Encounters Encounter ID Performer Location Encounter Start Date Encounter Closed Date Diagnosis/Indication Diagnosis SNOMED-CT Code Diagnosis ICD10 Code Diagnosis IMO Codes Diagnosis Note [id number] Ashok Muñoz MD [facility] [address] [place] [address] 10/29/2024 10:45:46 10/29/2024 11:14:31 Benign paroxysmal positional vertigo 021007870 H81.10 Health Concerns Section Related Observation LastModified by Organization Detai ls LastModified Time None Recorded Concern Status LastModified by Organization Details LastModified Time None Recorded Advance Directives Directive None Recorded Payers Insurance Date Sequence Insurance Name Policy Number Policy Gauthier Covered Member ID Gauthier Member ID Guarantor Name 11/04/2024 1 [facility] - AETNA (POS II) [id number] Karl [place] [id number] Karl [place] 11/04/2024 2 [facility]EP (PPO) [id number] [place] [id number] Karl [place] Notes Date Note Type Note Provider Name and Address Organization Details Recorded Time 10/29/2024 text/html This patient has no significant past medical history. He presents to the office with a complaint of significant vertigo that began on 10/25/2023. He states that he had developed significant vertigo with vomiting at the time. He presented to the ER on 10/26/2023 where a [place]-Hallpike test was confirmed and an Reynold maneuver was completed. He states that he has been completing an Reynold maneuver at home but has not had a referral to PT. Denies any hearing loss or tinnitus. He does admit to light sensitivity. He has been given meclizine with little to no relief. He does report positional changes as aggravating factors. Carolyn Bolanos, PEDAL ASSEMBLER [address] [facility], [facility] [address], [place], [address], [place] [facility] 10/29/2024 11:14:05
== END 2025-07-29 17:03 | disposition home or self-care (01) ==
PROVIDERS: Emergency Provider Nurse Practitioner; PCP Family Medicine
DX: S09.90XA Unspecified injury of head, initial encounter (principal); W22.8XXA Striking against or struck by other objects, initial encounter; S01.01XA Laceration without foreign body of scalp, initial encounter; F17.220 Nicotine dependence, chewing tobacco, uncomplicated; J45.909 Unspecified asthma, uncomplicated; K21.9 Gastro-esophageal reflux disease without esophagitis
CPT/HCPCS: 12001; 99213; G0463